=== PATIENT | male | born 1955 | race Two or more races ===

== ENCOUNTER 2025-02-21 23:45 | Inpatient (IN) | payer MEDICARE, OTHER ==
[~2025-02-21] VITALS: Ht 165.1 cm; Wt 87.7 kg
--- NOTE | 2025-02-22 00:21 | ED.PDOC ---
History of Present Illness HPI Comments 69-year-old male BIBA from [facility] with C/C of ALOC and weakness s/p fall with pain to right arm, leg, and foot. [facility] RN reported that patient reported her fell on his right side on Saturday and since then has become increasingly confused. Baseline is A/Ox4 and is currently A/Ox1. RN reported that stroke assessment was done at their facility and was negative but neuro consult is questionable for possible stroke. Neurology at facility is requesting patient be followed up with an MRI of his brain. Chief Complaint: ALOC Time Seen by MD: 00:09 Reviewed Notes: Medications, Allergies Allergies: Coded Allergies: NO KNOWN ALLERGIES (Unverified , 02/21/25) Information Source: Emergency Med Personnel Mode of Arrival: EMS Severity: Moderate Timing: Days Duration: Since onset Prehospital treatment: None Past Medical History PAST MEDICAL HISTORY: Pt Confused Surgical History: Pt Confused Family History Family History: Pt Confused Social History Smoker: Pt Confused Alcohol: Pt Confused Drugs: Pt Confused Lives In: Home Constitutional: reports: weakness; denies: chills, diaphoresis, fatigue, fever, malaise, sweats, others EENTM: denies: blurred vision, double vision, ear bleeding, ear discharge, ear drainage, ear pain, ear ringing, eye pain, eye redness, hearing loss, mouth pain, mouth swelling, nasal discharge, nose bleeding, nose congestion, nose pain, photophobia, tearing, throat pain, throat swelling, voice changes, others Respiratory: denies: cough, hemoptysis, orthopnea, SOB at rest, shortness of breath, SOB with excertion, stridor, wheezing, others Cardiovascular: denies: chest pain, dizzy spells, diaphoresis, Dyspnea on exertion, edema, irregular heart beat, left arm pain, lightheadedness, palpitations, PND, syncope, others Gastrointestinal: denies: abdomen distended, abdominal pain, blood streaked bowels, constipated, diarrhea, dysphagia, difficulty swallowing, hematemesis, melena, nausea, poor appetite, poor fluid intake, rectal bleeding, rectal pain, vomiting, others Genitourinary: denies: burning, dysuria, flank pain, frequency, hematuria, incontinence, penile discharge, penile sore, pain, testicle pain, testicle swelling, urgency, others Neurological: reports: right sided weakness; denies: dizziness, fainting, headache, left sided numbness, left sided weakness, numbness, paresthesia, pre- existing deficit, right sided numbness, seizure, speech problems, tingling, tremors, weakness, others Musculoskeletal: denies: back pain, gout, joint pain, joint swelling, muscle pain, muscle stiffness, neck pain, others Integumetry: denies: bruises, change in color, change in hair/nails, dryness, laceration, lesions, lumps, rash, wounds, others Allergic/Immunocompromised: denies: Difficulty Healing, Frequent Infections, Hives, Itching, others Hematologic/Lymphatic: denies: anemia, blood clots, easy bleeding, easy bruising, swollen glands, others Endocrine: denies: excessive hunger, excessive sweating, excessive thirst, excessive urination, flushing, intolerance to cold, intolerance to heat, unexplained weight gain, unexplained weight loss, others Psychiatric: denies: anxiety, bipolar disorder, depression, hopeless, panic disorder, schizophrenia, sleepless, suicidal, others Unable to Obtain due to: Altered Mental Status All Other Systems: Reviewed and Negative Physical Exam General Appearance: No Apparent Distress, Normal HEENT: Normal ENT Inspection, Pharynx Normal, TMs Normal Neck: Full Range of Motion, Non-Tender, Normal, Normal Inspection Respiratory: Chest Non-Tender, Lungs Clear, No Accessory Muscle Use, No Respiratory Distress, Normal Breath Sounds Cardiovascular: No Edema, No JVD, No Murmur, No Gallop, Normal Peripheral Pulses, Regular Rate/Rhythm Breast Exam: Deferred Gastrointestinal: No Organomegaly, Non Tender, No Pulsatile Mass, Normal Bowel Sounds, Soft Genitalia: Deferred Pelvic: Deferred Rectal: Deferred Extremities: No calf tenderness, Normal capillary refill, Normal inspection, Normal range of motion, Non-tender, No pedal edema Musculoskeletal : Apperance: Normal Neurologic: Alert, printed circuit board panels deburrer II-XII nml as Tested, No Motor Deficits, Normal Affect, No Sensory Deficits Cerebellar Function: Normal Reflexes: Normal Skin: Dry, Normal Color, Warm Lymphatic: No Adenopathy Was a procedure done? Was a procedure done?: No Differential Dx Considerations may include: CVA, ACS, viral syndrome, musculoskeletal pain X-Ray, Labs, Meds, VS Vital Signs Date Time Temp Pulse Resp B/P (MAP) Pulse Ox O2 Delivery O2 Flow Rate FiO2 02/21/25 23:47 97.9 74 18 180/86 (117) 97 97.9 Lab Test 02/22/25 00:40 02/22/25 00:21 Range/Units Urine Color Light-yellow Yellow Urine Clarity Clear Clear Urine pH 6.5 5.0-9.0 Urine Specific [place] > 1.050 H 1.001-1.035 Urine Protein Negative Negative Urine Ketones Negative Negative Urine Blood Negative Negative /uL Urine Nitrite Negative Negative Urine Bilirubin Negative Negative Urine Urobilinogen Normal Negative mg/dL Urine Leukocyte Esterase Negative Negative /uL Urine RBC 1 0 - 3 /hpf Urine Microscopic WBC < 1 0-3 /HPF Urine Squamous Epithelial Cells Few <5 /hpf Urine Bacteria None seen None Seen /hpf Urine Glucose Normal Normal mg/dL White Blood Count 8.1 4.4-10.8 10^3/uL Red Blood Count 4.63 4.5-5.90 10^6/uL Hemoglobin 15.1 13.5-17.5 g/dL Hematocrit 44.0 41.0-53.0 % Mean Corpuscular Volume 95.1 80.0-100.0 fL Mean Corpuscular Hemoglobin 32.7 H 28.0-32.0 pg Mean Corpuscular Hemoglobin Concent 34.4 32.0-36.0 g/dL Red Cell Distribution Width 13.6 11.8-14.3 % Platelet Count 201 140-450 10^3/uL Mean Platelet Volume 7.7 6.9-10.8 fL Neutrophils (%) (Auto) 69.7 37.0-80.0 % Lymphocytes (%) (Auto) 19.9 10.0-50.0 % Monocytes (%) (Auto) 8.6 0.0-12.0 % Eosinophils (%) (Auto) 1.0 0.0-7.0 % Basophils (%) (Auto) 0.8 0.0-2.0 % Neutrophils # (Auto) 5.6 1.6-8.6 10 ^3/uL Lymphocytes # (Auto) 1.6 0.4-5.4 10 ^3/uL Monocytes # (Auto) 0.7 0-1.3 10 ^3/uL Eosinophils # (Auto) 0.1 0-0.8 10 ^3/uL Basophils # (Auto) 0.1 0-0.2 10 ^3/uL Nucleated Red Blood Cells 0.1 % Sodium Level 139 136-145 mmol/L Potassium Level 4.1 3.5-5.1 mmol/L Chloride Level 108 H 98-107 mmol/L Carbon Dioxide Level 23 20-31 mmol/L Anion Gap 8 5-15 Blood Urea Nitrogen 12 9-23 mg/dL Creatinine 0.83 0.700-1.30 mg/dL Glomerular Filtration Rate Calc 96 >90 mL/min BUN/Creatinine Ratio 14.5 10.0-20.0 Serum Glucose 96 74-106 mg/dL Calcium Level 11.2 H 8.7-10.4 mg/dL Troponin I High Sensitivity 8 </=54 ng/L Time of 1ST Reevaluation: 00:39 Reevaluation 1ST: Unchanged Patient Education/Counseling: Diagnosis, Treatment Family Education/Counseling: No Family Present Departure 1 Departure Time of Disposition: 01:15 (Patient was transferred from outside hospital. That hospital he had CT scan x-rays performed. They are all benign. Patient was evaluated by neurology at outside hospital recommended transfer for MRI and further neurologic intervention.) Impression: Primary Impression: Metabolic encephalopathy Additional Impression: Right sided weakness Disposition: ADMITTED INPATIENT Admit to: Med Surg Condition: Serious Critical Care Note Critical Care Time?: No Stability Stability form required: No I personally scribed for MIRIAM CEDILLO MD ([email or web address]) on 02/22/25 at 00:21. Electronically submitted by Navin Prater ([email or web address]). MIRIAM CEDILLO MD Feb 22, 2025 00:21
[2025-02-22 00:39] LABS: Basophils # (auto) 0.1 10 ^3/uL (0-0.2); Basophils % (auto) 0.8 % (0.0-2.0); Eosinophils # (auto) 0.1 10 ^3/uL (0-0.8); Hemoglobin 15.1 g/dL (13.5-17.5); Lymphocytes # (auto) 1.6 10 ^3/uL (0.4-5.4); Lymphocytes % (auto) 19.9 % (10.0-50.0); Mean Corpuscular Hemoglobin 32.7 pg (28.0-32.0); Mean Corpuscular Hgb Conc. 34.4 g/dL (32.0-36.0); Mean Corpuscular Volume 95.1 fL (80.0-100.0); Monocytes # (auto) 0.7 10 ^3/uL (0-1.3); Monocytes % (auto) 8.6 % (0.0-12.0); Neutrophils # (auto) 5.6 10 ^3/uL (1.6-8.6); Neutrophils % (auto) 69.7 % (37.0-80.0); Nucleated Red Blood Cells % 0.1 %; Platelet Count (auto) 201 10^3/uL (140-450); Red Blood Cells 4.63 10^6/uL (4.5-5.90); Red Cell Distribution Width 13.6 % (11.8-14.3); White Blood Cell 8.1 10^3/uL (4.4-10.8)
[2025-02-22 00:48] LABS: Potassium 4.1 mmol/L (3.5-5.1); Sodium 139 mmol/L (136-145)
[2025-02-22 00:49] LABS: Anion Gap 8 (5-15); Carbon Dioxide 23 mmol/L (20-31)
[2025-02-22 00:52] LABS: Calcium 11.2 mg/dL (8.7-10.4); Chloride 108 mmol/L (98-107)
[2025-02-22 00:54] LABS: BUN/Creatinine Ratio 14.5 (10.0-20.0); Blood Urea Nitrogen 12 mg/dL (9-23); Glucose 96 mg/dL (74-106)
[2025-02-22 00:55] VITALS: PULSE 62; RESP 16; O2SAT 92
[2025-02-22 01:01] LABS: Urine Bacteria None Seen /hpf (None Seen)
[2025-02-22 01:11] LABS: Urine Blood Negative /uL (Negative); Urine Clarity Clear (Clear); Urine Color Light-Yellow (Yellow); Urine Protein, UAD Negative (Negative); Urine Squamous Epithelial Cell FEW /hpf (<5); Urine Urobilinogen Normal (Negative); Urine WBC < 1 /HPF (0-3); Urine pH 6.5 (5.0-9.0)
[2025-02-22 01:12] LABS: Urine Specific Gravity > 1.050 (1.001-1.035)
--- NOTE | 2025-02-22 03:38 | DVHHPRES ---
History of Present Illness Resident Creating Document: MELCHOR DIAZ RESIDENT History of Present Illness Mr. Collazo is a 69-year-old male patient with past medical history of hypertension who was transferred from [facility] for the evaluation of right-sided weakness. Patient presented to [place] with a chief complaint of a fall, per review of record, patient has been having multiple falls in the recent past, last 1 was on 02/18 and 02/20, 1 of which fall episodes patient lost consciousness and he was knocked out. Patient was coming out to the car when his legs collapsed and he fell, this episode was witnessed by neighbors and patient's . Patient is A&O3 at the time of history taking but per chart review he was confused at [facility]. Patient reported weakness of the right upper and lower extremity which has persisted till now. He also reports dysphagia, blurry vision, headache, but denies any sensory loss. He usually ambulates with a wheelchair. Patient is a chronic smoker redness has been smoking almost a pack a day. [facility], head CT was unremarkable. Neurologist recommended transfer for MRI brain given the probability of posterior circulation stroke. CT angio head and neck was also completed [place] which was unremarkable. Knee x-ray was completed which showed a small effusion. EKG was completed which showed PACs. Past medical history: Hypertension Social history: Smokes a pack a day for the past 50 years, drinks occasionally, denies illicit drug use Patient seen and examined at the bedside. Has right upper and right lower extremity motor weakness. No sensory deficits. NPO, speech swallow ordered Smoke: 1 pack per day ALCOHOL: occassional Drugs: None Lives: with Family Review of Systems Constitutional: Yes: Weakness, Malaise Neurological: Weakness, Confusion Allergies: Coded Allergies: NO KNOWN ALLERGIES (Unverified , 02/21/25) Exam Vital Signs Vital Signs Date Time Temp Pulse Resp B/P (MAP) Pulse Ox O2 Delivery O2 Flow Rate FiO2 02/22/25 01:00 98.1 60 16 160/99 (119) 92 98.1 02/22/25 00:55 Room Air* 0 21 Exam Patient lying in bed, in no acute distress General: Well-built, afebrile, palor, mucosae are moist Cardiovascular: Regular S1 and S2. No murmurs, gallops or rubs. No JVD elevation. No pedal edema Respiratory: Normal B/L air entry on room air. Clear lung sounds on auscultation Abdomen: Soft, nontender, nondistended, normoactive bowel sounds, no rebound tenderness, no organomegaly, no masses Genitourinary: Deferred MSK/skin: Mobilizes 4 limbs. Skin is dry and warm Neurological: Right upper and right lower extremity motor weakness against gravity, no sensory deficit.. No facial asymmetry noted. Psych/Mental Status: A/Ox3 Labs/Xrays Labs Test 02/22/25 00:40 02/22/25 00:21 Range/Units Urine Color Light-yellow Yellow Urine Clarity Clear Clear Urine pH 6.5 5.0-9.0 Urine Specific [place] > 1.050 H 1.001-1.035 Urine Protein Negative Negative Urine Ketones Negative Negative Urine Blood Negative Negative /uL Urine Nitrite Negative Negative Urine Bilirubin Negative Negative Urine Urobilinogen Normal Negative mg/dL Urine Leukocyte Esterase Negative Negative /uL Urine RBC 1 0 - 3 /hpf Urine Microscopic WBC < 1 0-3 /HPF Urine Squamous Epithelial Cells Few <5 /hpf Urine Bacteria None seen None Seen /hpf Urine Glucose Normal Normal mg/dL White Blood Count 8.1 4.4-10.8 10^3/uL Red Blood Count 4.63 4.5-5.90 10^6/uL Hemoglobin 15.1 13.5-17.5 g/dL Hematocrit 44.0 41.0-53.0 % Mean Corpuscular Volume 95.1 80.0-100.0 fL Mean Corpuscular Hemoglobin 32.7 H 28.0-32.0 pg Mean Corpuscular Hemoglobin Concent 34.4 32.0-36.0 g/dL Red Cell Distribution Width 13.6 11.8-14.3 % Platelet Count 201 140-450 10^3/uL Mean Platelet Volume 7.7 6.9-10.8 fL Neutrophils (%) (Auto) 69.7 37.0-80.0 % Lymphocytes (%) (Auto) 19.9 10.0-50.0 % Monocytes (%) (Auto) 8.6 0.0-12.0 % Eosinophils (%) (Auto) 1.0 0.0-7.0 % Basophils (%) (Auto) 0.8 0.0-2.0 % Neutrophils # (Auto) 5.6 1.6-8.6 10 ^3/uL Lymphocytes # (Auto) 1.6 0.4-5.4 10 ^3/uL Monocytes # (Auto) 0.7 0-1.3 10 ^3/uL Eosinophils # (Auto) 0.1 0-0.8 10 ^3/uL Basophils # (Auto) 0.1 0-0.2 10 ^3/uL Nucleated Red Blood Cells 0.1 % Sodium Level 139 136-145 mmol/L Potassium Level 4.1 3.5-5.1 mmol/L Chloride Level 108 H 98-107 mmol/L Carbon Dioxide Level 23 20-31 mmol/L Anion Gap 8 5-15 Blood Urea Nitrogen 12 9-23 mg/dL Creatinine 0.83 0.700-1.30 mg/dL Glomerular Filtration Rate Calc 96 >90 mL/min BUN/Creatinine Ratio 14.5 10.0-20.0 Serum Glucose 96 74-106 mg/dL Calcium Level 11.2 H 8.7-10.4 mg/dL Troponin I High Sensitivity 8 </=54 ng/L Assessment/Plan Assessment/Plan Syncopal episode rule out cardiogenic cause Altered level of consciousness rule out metabolic causes Right upper and lower extremity weakness Rule out acute stroke Hypertensive encephalopathy Chronic rotator cuff tear - outpatient elective surgery Chronic alcohol dependence Macrocytosis secondary to alcohol use Mild hypercalcemia Plan: Neurologist Dr. Morales at [facility] recommended transferring for MRI brain Follow up with echocardiogram, carotid duplex, MRI brain, panel, A1c Aspirin 81 mg daily and atorvastatin 40 mg daily Chest x-ray shows bilateral pulmonary vascular congestion when probable right l ower infiltrate versus effusion. Follow up with BNP levels, trop WNL. Physical therapist consulted Follow up with with telemetry and echocardiogram Lovenox 40 mg sc daily NPO given dysphagia, speech therapist requested Plan discussed with patient in which all questions have been answered Goals of care discussed for more than 38 minutes, full code status Case discussed with Dr. Mcguire Plan discussed with: Patient Date of Service: Feb 22, 2025 Billing Provider: LISA MCGUIRE MD Common Visit Codes: [id number] INP/OBS CARE (HIGH) Secondary Visit Codes: [id number] CARE PLAN 30 MINUTES MELCHOR DIAZ RESIDENT Feb 22, 2025 03:38 LISA MCGUIRE MD Feb 22, 2025 11:03
[2025-02-22] MEDS ORDERED: ACETAMINOPHEN 500 MG TAB or CAP PO PRN (03:45)
[2025-02-22] MEDS ORDERED: amLODIPine BESYLATE 5 MG TAB PO ONE (04:00)
[2025-02-22 04:33] LABS: Partial Thromboplastin Time 31.7 SEC (24.5-34.5); Prothrombin Time 10.6 sec (9.3-11.8)
--- NOTE | 2025-02-22 04:42 | DVH ---
CHEST RADIOGRAPH Indication: falls Technique: Single frontal view of the chest was obtained Comparison: None FINDINGS: Lines and Tubes: None Lungs: Pulmonary interstitial prominence. Pleura: No effusion. No pneumothorax. Cardiomediastinal contours: Cardiomegaly. Bones: No acute osseous abnormality. IMPRESSION: 1. Pulmonary vascular congestion. 2. Cardiomegaly.
[2025-02-22 04:44] LABS: Albumin 4.3 g/dL (3.2-4.8); Bilirubin, Direct 0.2 mg/dL (<0.3); Bilirubin, Total 0.9 mg/dL (0.2-1.0); Total Protein 6.8 g/dL (5.7-8.2)
[2025-02-22] MEDS: HYDROcodone-ACET 5/325MG TAB PO PRN (07:57)
[2025-02-22] MEDS ORDERED: amLODIPine BESYLATE 5 MG TAB PO SCH (10:00)
--- NOTE | 2025-02-22 10:02 | DVH ---
Carotid Duplex Date: 02/22/2025 08:04 AM Clinical History: r sided weak Comparison: None Technique: Duplex Doppler evaluation of the extracranial carotid and vertebral arteries including col or Doppler and spectral/pulsed waveform analysis was performed. Findings: Velocities and ratios within normal IMPRESSION: No hemodynamically significant stenosis noted in the right carotid system. No hemodynamically significant stenosis noted in the left carotid system. Reference: Radiology 2003; 229:[id number]
[2025-02-22] MEDS: ASPirin-EC 81 mg tab PO SCH (10:56)
[2025-02-22] MEDS: amLODIPine BESYLATE 5 MG TAB PO SCH (10:56)
[2025-02-22] MEDS: ENOXAPARIN SOD 40 MG/0.4 ML SYRINGE SC SCH (10:57)
[2025-02-22] MEDS: LISINOPRIL 5 MG TAB PO ONE (10:58)
--- NOTE | 2025-02-22 12:15 | DVH ---
X-ray right shoulder Technique: AP internal and external rotation views REASON FOR EXAM: pain after fall FINDINGS: No fractures or dislocations. High-riding humeral head abuts the undersurface of the distal acromion process with remodelling IMPRESSION: 1. No acute bony pathology. Probable rotator cuff tear
--- NOTE | 2025-02-22 13:26 | DVH ---
X-ray right hip Technique: AP and frog-leg views REASON FOR EXAM: Hip Fracture FINDINGS: No fractures or dislocations. No erosions or periosteal reaction. Articular surfaces are sm ooth. IMPRESSION: 1. No acute bony pathology
[2025-02-22 13:54] LABS: Amphetamine Screen, Urine Neg (NEGATIVE); Barbiturate Scree,Urine Neg (NEGATIVE); Benzodiazephine Screen, Urine Neg (NEGATIVE); Cocaine Screen, Urine Neg (NEGATIVE); Opiate Scree,Urine Neg (NEGATIVE); Phencyclidine Screen, Urine Neg (NEGATIVE)
[2025-02-22 13:55] LABS: Cannabinoid Screen, Urine Neg (NEGATIVE)
[2025-02-22 16:42] VITALS: BP 123/84; PULSE 82; RESP 20; TEMP 98.5; O2SAT 94
--- NOTE | 2025-02-22 16:45 | DVHPNRES ---
Progress Note Date Seen: Feb 22, 2025 Resident Creating Document: BARRETT WOODS TA Has the PT tested + for MRSA If YES, has PT been informed?: No Medical Necessity Reason Pt with a Central, PICC or Fol: No Subjective Review of Systems This is a 69-year-old male with past medical history of hypertension transferred from [facility] for evaluation of right side weakness. Patient is altered, history taken from at bedside. Per patient's , he had a mechanical fall 4 days back, post fall he was altered, was refusing hospital visit and yesterday he was taken to [facility]. Per [facility] records head CT scan and head/neck CT angio were not significant. During my assessment patient was oriented x1 and was complaining of right upper extremity pain. Per patient's , he has history of multiple fall, did not have any active complains but was not able to use his right upper and lower extremity since recent fall, and was ataxic during mobility. She denies fever, nausea, vomiting, chest pain, shortness of breath, abdominal pain, diarrhea, constipation. PMHx: Hypertension PSHx: No significant Family history: Not contributed Social history:Current smoker with 50 pack year history, drank occasionally, denies any other drug use Home medication: Amlodipine Allergic history: No known allergy Patient seen and examined at the bedside. Patient is altered. review of systems could not obtain. Patient reports: No new complaints Objective vital signs Vital Sign Date Time Temp Pulse Resp B/P (MAP) Pulse Ox O2 Delivery O2 Flow Rate FiO2 02/22/25 15:11 89 13 136/76 (96) 92 02/22/25 07:12 Room Air* 0 21 02/22/25 07:12 98.1 98.1 medications Current Medications Medications Dose Ordered Sig/Luke Route Start Time Stop Time Status Last Admin Dose Admin Aspirin 81 mg DAILY PO 02/22/25 10:00 02/22/25 10:56 81 MG Atorvastatin Calcium 40 mg HS PO 02/22/25 22:00 Acetaminophen 500 mg Q4HPRN PRN PO 02/22/25 03:45 Acetaminophen/ Hydrocodone Bitart 1 tab Q4HPRN PRN PO 02/22/25 03:45 02/22/25 07:57 1 TAB Enoxaparin Sodium 40 mg DAILY SC 02/22/25 10:00 4/21/25 10:57 40 MG Amlodipine Besylate 10 mg DAILY PO 02/22/25 10:00 02/22/25 10:56 10 MG Lisinopril 10 mg DAILY PO 02/23/25 10:00 Examination General Appearance: Alert, Oriented x1 HEENT: Atraumatic, PERRLA, EOMI, Mucous membrane moist/pink Respiratory: Clear to auscultation, Normal air movement Cardiovascular: Regular rate, Normal S1, Normal S2, No murmurs, no chest wall tenderness Abdominal: Normal bowel sounds, Soft, No tenderness, No hepatospenomegaly, No masses Extremities: No clubbing, No cyanosis, No edema, Normal pulses, No tenderness/swelling Skin: No rashes, No breakdown, No significant lesion Neuro: Right upper extremity power 2/5, right lower extremity power 1/5, grossly intact cranial nerves laboratory and microbiology Laboratory Tests 02/22/25 00:21 Test 02/22/25 00:21 Range/Units Serum Glucose 96 74-106 mg/dL Labs and/or images reviewed: Labs reviewed by me, Image(s) reviewed by me Problem List/Assessment/Plan Problem List/Assessment/Plan Acute metabolic encephalopathy, possibly due to traumatic brain injury Traumatic brain injury, concussion/contusion Possible ischemic stroke ? Hypertensive emergency leading to stroke/encephalopathy History of hypertension Per [place] record, head CT scan and head/neck CT angio were nonsignificant Brain MRI Consulted Neurology Aspirin Atorvastatin Amlodipine and lisinopril Labetalol p.r.n. Current smoker Consulted for more than 17 minutes for smoking cessation Nicotine patch Hypercalcemia Ca trend DIET: Cardiac diet DVT PROPHYLAXIS: Lovenox GI PROPHYLAXIS:: Protonix CODE STATUS: Goal of care discussed for more than 18 minutes, full code DISPOSITION: Telemetry Patient's status and plan discussed with the patient. Case discussed with Dr. Padgett. Plan discussed with: Patient, Other (RN) My Orders My Orders Orders - BARRETT WOODS RESDIJUNIOR Procedure Category Date Status Time Amlodipine Tablet PHA 02/22/25 In Process (Norvasc Tablet) 10:00 Cardiac DIET 02/22/25 Transmitted Diet-2gna,Lofat,Lochol Lunch Pt Request For Service PT 02/22/25 Logged 10:15 Lisinopril Tablet PHA 02/23/25 In Process (Zestril Tablet) 10:00 R Shoulder 2+ View XY 02/22/25 Resulted Xray 10:43 R Hip Complete Xray XY 02/22/25 Resulted 12:17 * Neurology Consult CONS 02/22/25 Transmitted 12:17 Sitter 1:1 ORDERS 02/22/25 Transmitted 12:26 Date of Service: Feb 22, 2025 Billing Provider: ISABEL HATCH MD Common Visit Codes: [id number] INP/OBS CARE(HIGH) BARRETT WOODS RESDIENT Feb 22, 2025 16:44 ISABEL HATCH MD Feb 24, 2025 00:32
[2025-02-22 16:51] VITALS: BP 123/84; RESP 18; TEMP 98
[2025-02-22] MEDS: NICOTINE 21MG/24 HR TOPICAL PATCH TD ONE (17:15)
--- NOTE | 2025-02-22 18:23 | DVH ---
EXAM: MRI BRAIN HEAD WO CONTRAST; DATE: 02/22/2025 05:03 PM HISTORY: aloc, stroke COMPARISON: None TECHNIQUE: MRI was performed utilizing multiple appropriate imaging planes and pulse sequences. FINDINGS: SUPRATENTORIAL REGION: Restricted diffusion noted in the inferior right occipital lobe extending to the posterior medial aspect of the temporal lobe. Restricted diffusion also noted in the left thalamu s No intracranial hemorrhage noted. Scattered ill-defined FLAIR hyperintensities are noted within the bilateral periventricular region, belcher radiata and subcortical white matter. POSTERIOR FOSSA: Unremarkable. BRAINSTEM: Unremarkable. SELLAR/SUPRASELLAR REGION: Unremarkable. VENTRICLES, CISTERNS, SULCI: Age-appropriate. ORBITS: Unremarkable. PARANASAL SINUSES: Mild diffuse paranasal sinus disease. Trace fluid noted in the sphenoid and ethm oid sinuses. MASTOID AIR CELLS: Unremarkable. VASCULATURE: Unremarkable. BONES/ SOFT TISSUES: Unremarkable. OTHER: None. IMPRESSION: 1. Acute ischemia involving the inferior left occipital lobe, posterior medial left temporal lobe the left thalamus. No intracranial hemorrhage.Moderate global 2. Cortical atrophy and chronic microvascular ischemic changes. 3. 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. Critical Result: Stroke Alert Findings discussed with DEREK Singh at 02/22/2025 06:11 PM, and acknowledged receipt and understanding of the findings. ..
--- NOTE | 2025-02-22 18:28 | DVHSR ---
APPROVED REPORT EXAM: Two-dimensional and M-mode echocardiogram with Doppler and color Doppler. Blood Pressure: 136/76 mmHg INDICATION Syncope RISK FACTORS Height: 5'5", Weight: 160 DIMENSIONS LVDd3.5 (3.8-5.7cm)LA (2D)3.5 (1.9-4.0cm)Aortic Root3.8 (2.0-3.7cm) LVDs2.6 (2.5-4.0cm)LA (MM) (1.9-4.0cm)Aortic Cusp Exc1.8 (1.5-2.0cm) EF (%) 50.0 (55-70%)Rt. Atrium3.4 (1.9-4.0cm)Asc. Aorta cm IVSd1.5 (0.7-1.1cm)RV (D)3.9 (1.8-2.4cm) PWd1.4 (0.7-1.1cm) Mitral Valve MitralMitral Stenosis E wave0.61m/sMV Mean GR.mmHg A wave0.84m/sMV Peak GR.mmHg E/A ratio0.72D MVAcm2 DECEL [id number] 1/2 Timems Aortic Valve Aortic ValveAortic Stenosis V11.12m/Liseth Mean GR.3mmHg V21.25m/Liseth Peak GR.6mmHg LVOT Diameter2.1 (1.8-2.4cm)Doppler AVA3.10cm2 Pulmonic Valve V21.02m/s LEFT VENTRICLE There is mildconcentric left ventricular hypertrophy. LVEF 55-60% is normal RIGHT VENTRICLE RV function is normal Other Information Technically limited study due to body habitus. Conclusion LVEF 55-60% is normal There is mild concentric left ventricular hypertrophy.
[2025-02-22 20:00] VITALS: PULSE 56; RESP 16
[2025-02-22 21:00] VITALS: BP 131/88; PULSE 87; RESP 19; TEMP 98; O2SAT 92
[2025-02-22] MEDS: ATORVASTATIN 20 MG TAB PO SCH (21:02)
--- NOTE | 2025-02-22 23:47 | DVHINCON2 ---
Date of service: Feb 22, [address] Snowden Reason for Consultation ? CVA History of Present Illness Mr. Collazo is a 69 years old gentleman with a history of hypertension, obesity, tobacco smoking, the patient was was transferred from the [facility] with a chief company of ALOC, weakness, status post fall. Apparently, the patient was had fall onto his right side, and since then the pa tient was confused, was only oriented x1 compared to baseline fully oriented At that time, the patient was is arousable, but may only oriented times 1-2, but with reasonable social skills. Per my observation, the patient was may have right-sided visual field cut, and mild right-sided weakness Urinalysis, 02/22/2025: WBC: 1, urine leukocyte esterase: Negative UDS, 02/22/2025: Negative CBC, 02/22/2025: Unremarkable CMP, 02/22/2025: Unremarkable HGB A1c, 02/22/25: 5 Vitamin B12, 02/22/25: 239 TSH, 02/22/2025: 1.06 Carotid Doppler, 02/22/2025: No hemodynamically significant stenosis noted in the right carotid system. No hemodynamically significant stenosis noted in the left carotid system. MRI head, 02/22/2025: 1. Acute ischemia involving the inferior left occipital lobe, posterior medial left temporal lobe the left thalamus. No intracranial hemorrhage.Moderate global 2. Cortical atrophy and chronic microvascular ischemic changes. 3. 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 Past Medical History Hypertension, obesity Past Surgical History Unobtainable Family History Unobtainable Social History He smokes, but no history of drug or alcohol abuse Allergies: Coded Allergies: NO KNOWN ALLERGIES (Unverified , 02/21/25) Current Medications Current Medications Medications (Trade) Dose Ordered Sig/Luke Route PRN Reason Start Time Stop Time Status Last Admin Aspirin (Ecotrin Enteric Coated Tablet) 81 mg DAILY PO 02/22/25 10:00 02/22/25 10:56 Atorvastatin Calcium (Lipitor) 40 mg HS PO 02/22/25 22:00 02/22/25 21:02 Acetaminophen (Tylenol Tablet Or Capsule) 500 mg Q4HPRN PRN PO MILD PAIN (1-3 PAIN SCALE) 02/22/25 03:45 Acetaminophen/ Hydrocodone Bitart ([place] 5/325MG Tab) 1 tab Q4HPRN PRN PO SEVERE PAIN (7-10 PAIN SCALE) 02/22/25 03:45 02/22/25 07:57 Amlodipine Besylate (Norvasc Tablet) 10 mg DAILY PO 02/22/25 10:00 02/22/25 03:52 DC Enoxaparin Sodium (Lovenox) 40 mg DAILY SC 02/22/25 10:00 02/22/25 10:57 Amlodipine Besylate (Norvasc Tablet) 10 mg DAILY PO 02/22/25 10:00 02/22/25 10:56 Lisinopril (Zestril Tablet) 10 mg DAILY PO 02/23/25 10:00 Nicotine (Nicoderm 21MG/ 24HR) 1 patch DAILY TD 02/23/25 10:00 Review of Systems Unobtainable Vital Signs Vital Signs Date Time Temp Pulse Resp B/P (MAP) Pulse Ox O2 Delivery O2 Flow Rate FiO2 02/22/25 21:00 98.0 87 19 131/88 (102) 92 98.0 02/22/25 20:00 Room Air* 0 21 Physical Exam GENERAL EXAM: General: the patient is well developed and nourished. No acute distress. HEENT: Normocephalic, neck is supple, no carotid bruits. No mass RESPIRATORY: Normal respiratory effort with symmetrical lung expansion. Lungs clear to auscultation. CARDIOVASCULAR: Regular rate and rhythm with no murmurs. S1, S2. ABDOMEN: Soft, nontender, normal bowel sound NEUROLOGICAL: MENTAL STATUS: Awake and alert. Oriented to person, possibly to place, poor hist orian SPEECH, LANGUAGE, HIGHER CORTICAL FUNCTION: no aphasia or dysathria. CRANIAL NERVES: #2: Right visual field cut #3,4,6: Pupils are equal, round and reactive. EOMs full and conjugate. #5: Facial sensation intact in all three divisions bilaterally. Mandibular strength intact. #7: Facial muscles symmetrical and strength intact. #8: Hearing grossly normal to voice. #9,10: Uvula and soft palate rise in the midline. Swallow and voice are normal. #11: Trapezius and sternomastoid strength intact bilaterally. #12: Tongue midline. No fasciculations or atrophy. SENSATION: Sensation to touch and pinprick is normal. MOTOR: Normal tone in the upper and lower extremity. Normal muscle bulk. No fasciculations. No abnormal movements or posturing. Muscle strength of the major groups in the left extremities is 5/5. Muscle strength of the major groups in the right r extremities is 4/5. REFLEXES: Deep tendon reflexes are symmetrical. No pathological reflexes. CEREBELLAR/COORDINATION: Deferred GAIT/STATION: deferred Labs/Diagnostic Data Labs Test 02/22/25 13:10 02/22/25 04:03 02/22/25 00:40 02/22/25 00:21 Range/Units Ammonia < 10 L 11-32 umol/L Prothrombin Time 10.6 9.3-11.8 sec Prothrombin Time INR 1.00 0.9-1.15 Activated Partial Thromboplast Time 31.7 24.5-34.5 SEC Hemoglobin A1c 5.0 <5.7 % A1C Magnesium Level 2.2 1.6-2.6 mg/dL Total Bilirubin 0.9 0.2-1.0 mg/dL Direct Bilirubin 0.2 <0.3 mg/dL Aspartate Amino Transferase (AST) 17 13-40 U/L Alanine Aminotransferase (ALT) 18 7-40 U/L Alkaline Phosphatase 95 46-116 U/L Total Protein 6.8 5.7-8.2 g/dL Albumin 4.3 3.2-4.8 g/dL Vitamin B12 Level 239 211-911 pg/mL Vitamin D 25-Hydroxy 35.8 30.0-100 ng/mL Thyroid Stimulating Hormone (TSH) 1.06 0.55-4.78 uIU/mL Parathyroid Hormone (Intact) 103.8 H 18.4-80.1 pg/mL HIV (1&2) Antibody Negative Negative Urine Color Light-yellow Yellow Urine Clarity Clear Clear Urine pH 6.5 5.0-9.0 Urine Specific [place] > 1.050 H 1.001-1.035 Urine Protein Negative Negative Urine Ketones Negative Negative Urine Blood Negative Negative /uL Urine Nitrite Negative Negative Urine Bilirubin Negative Negative Urine Urobilinogen Normal Negative mg/dL Urine Leukocyte Esterase Negative Negative /uL Urine RBC 1 0 - 3 /hpf Urine Microscopic WBC < 1 0-3 /HPF Urine Squamous Epithelial Cells Few <5 /hpf Urine Bacteria None seen None Seen /hpf Urine Glucose Normal Normal mg/dL Urine Opiates Screen Neg NEGATIVE Urine Fentanyl Screen Neg NEGATIVE Urine Barbiturates Screen Neg NEGATIVE Urine Phencyclidine Screen Neg NEGATIVE Urine Amphetamines Screen Neg NEGATIVE Urine Benzodiazepines Screen Neg NEGATIVE Urine Cocaine Screen Neg NEGATIVE Urine Cannabinoids Screen Neg NEGATIVE White Blood Count 8.1 4.4-10.8 10^3/uL Red Blood Count 4.63 4.5-5.90 10^6/uL Hemoglobin 15.1 13.5-17.5 g/dL Hematocrit 44.0 41.0-53.0 % Mean Corpuscular Volume 95.1 80.0-100.0 fL Mean Corpuscular Hemoglobin 32.7 H 28.0-32.0 pg Mean Corpuscular Hemoglobin Concent 34.4 32.0-36.0 g/dL Red Cell Distribution Width 13.6 11.8-14.3 % Platelet Count 201 140-450 10^3/uL Mean Platelet Volume 7.7 6.9-10.8 fL Neutrophils (%) (Auto) 69.7 37.0-80.0 % Lymphocytes (%) (Auto) 19.9 10.0-50.0 % Monocytes (%) (Auto) 8.6 0.0-12.0 % Eosinophils (%) (Auto) 1.0 0.0-7.0 % Basophils (%) (Auto) 0.8 0.0-2.0 % Neutrophils # (Auto) 5.6 1.6-8.6 10 ^3/uL Lymphocytes # (Auto) 1.6 0.4-5.4 10 ^3/uL Monocytes # (Auto) 0.7 0-1.3 10 ^3/uL Eosinophils # (Auto) 0.1 0-0.8 10 ^3/uL Basophils # (Auto) 0.1 0-0.2 10 ^3/uL Nucleated Red Blood Cells 0.1 % Sodium Level 139 136-145 mmol/L Potassium Level 4.1 3.5-5.1 mmol/L Chloride Level 108 H 98-107 mmol/L Carbon Dioxide Level 23 20-31 mmol/L Anion Gap 8 5-15 Blood Urea Nitrogen 12 9-23 mg/dL Creatinine 0.83 0.700-1.30 mg/dL Glomerular Filtration Rate Calc 96 >90 mL/min BUN/Creatinine Ratio 14.5 10.0-20.0 Serum Glucose 96 74-106 mg/dL Calcium Level 11.2 H 8.7-10.4 mg/dL Troponin I High Sensitivity 8 </=54 ng/L B-Type Natriuretic Peptide 24.73 0-100 pg/mL Assessment Acute stroke with resultant right hemiparesis, right homonymous hemianopsia Fall secondary to right hemiparesis Tobacco smoking Low vitB12 Plan/Recommendation Monitoring Supportive treatment Telemetry Echocardiogram Aspirin 81 mg daily Plavix 75 mg daily for 21 days Lipitor 40 mg daily Lovenox 40 mg subQ daily Up to chair Physical therapy Will discussed with him Re: driving It was quit smoking More recommendation per clinical course Prognosis: Poor This medical document was created using an electronic medical record system with [employer] dictation system. Although this document has been carefully reviewed, there may still be some phonetic and typographical errors. These areas are purely typographical due to imperfections of the software programs, and do not reflect any compromise in the patient's medical care. Plan discussed with: Other MARK BOOKER MD Feb 22, 2025 23:47
[2025-02-23] VITALS (7 sets, daily range): BP systolic 119–148; BP diastolic 73–92; PULSE 58–87; RESP 16–19; TEMP 97.7–98.5; O2SAT 96–98
[2025-02-23 07:31] LABS: Basophils # (auto) 0 10 ^3/uL (0-0.2); Basophils % (auto) 0.8 % (0.0-2.0); Eosinophils # (auto) 0.2 10 ^3/uL (0-0.8); Eosinophils % (auto) 3.6 % (0.0-7.0); Hematocrit 45.8 % (41.0-53.0); Lymphocytes # (auto) 1.3 10 ^3/uL (0.4-5.4); Mean Corpuscular Hemoglobin 33.3 pg (28.0-32.0); Mean Corpuscular Hgb Conc. 35.1 g/dL (32.0-36.0); Monocytes # (auto) 0.5 10 ^3/uL (0-1.3); Neutrophils # (auto) 3.7 10 ^3/uL (1.6-8.6); Neutrophils % (auto) 63.6 % (37.0-80.0); Nucleated Red Blood Cells % 0.3 %; Platelet Count (auto) 207 10^3/uL (140-450); Red Blood Cells 4.82 10^6/uL (4.5-5.90); Red Cell Distribution Width 13.7 % (11.8-14.3); White Blood Cell 5.8 10^3/uL (4.4-10.8)
[2025-02-23 07:36] LABS: Alanine Aminotransferase 24 U/L (7-40); Albumin 4.2 g/dL (3.2-4.8); Alkaline Phosphatase 94 U/L (46-116); Anion Gap 7 (5-15); Aspartate Aminotransferase 30 U/L (13-40); Glucose 92 mg/dL (74-106); Potassium 4.4 mmol/L (3.5-5.1); Triglycerides 109 mg/dL (< 150)
[2025-02-23 07:37] LABS: Bilirubin, Total 0.9 mg/dL (0.2-1.0); HDL Cholesterol 59 mg/dL (40-59)
[2025-02-23 07:39] LABS: Blood Urea Nitrogen 7 mg/dL (9-23); Calcium 11.2 mg/dL (8.7-10.4); Carbon Dioxide 19 mmol/L (20-31); Chloride 108 mmol/L (98-107); Cholesterol 218 mg/dL (< 200); LDL Cholesterol 142 mg/dL (< 100); Sodium 134 mmol/L (136-145)
[2025-02-23] MEDS: CLOPIDOGREL BISULFATE 75 MG TAB PO SCH (09:49)
[2025-02-23] MEDS: LISINOPRIL 5 MG TAB PO SCH (09:50)
[2025-02-23] MEDS: NICOTINE 21MG/24 HR TOPICAL PATCH TD SCH (09:52)
--- NOTE | 2025-02-23 12:11 | ECG ---
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
[2025-02-23] MEDS: ATORVASTATIN 20 MG TAB PO SCH (14:35)
--- NOTE | 2025-02-23 18:57 | DVHPNRES ---
Progress Note Date Seen: Feb 23, 2025 Resident Creating Document: BARRETT WOODS RESDIENT Has the PT tested + for MRSA If YES, has PT been informed?: No Medical Necessity Reason Pt with a Central, PICC or Fol: No Subjective Review of Systems Patient seen and examined at the bedside. Patient is still confused and could not communicate properly . Objective vital signs Vital Sign Date Time Temp Pulse Resp B/P (MAP) Pulse Ox O2 Delivery O2 Flow Rate FiO2 02/23/25 17:00 98.5 65 18 141/73 (95) 96 98.5 02/23/25 08:15 Room Air* 0 21 Total Intake and Output 02/22/25 02/22/25 02/23/25 14:59 22:59 06:59 Intake Total 180 ml 850 ml Output Total 1 ml Balance 179 ml 850 ml medications Current Medications Medications Dose Ordered Sig/Luke Route Start Time Stop Time Status Last Admin Dose Admin Aspirin 81 mg DAILY PO 02/22/25 10:00 02/23/25 09:50 81 MG Acetaminophen 500 mg Q4HPRN PRN PO 02/22/25 03:45 Acetaminophen/ Hydrocodone Bitart 1 tab Q4HPRN PRN PO 02/22/25 03:45 02/23/25 14:34 1 TAB Enoxaparin Sodium 40 mg DAILY SC 02/22/25 10:00 02/23/25 09:51 40 MG Amlodipine Besylate 10 mg DAILY PO 02/22/25 10:00 02/23/25 09:49 10 MG Lisinopril 10 mg DAILY PO 02/23/25 10:00 02/23/25 09:50 10 MG Nicotine 1 patch DAILY TD 02/23/25 10:00 Clopidogrel Bisulfate 75 mg DAILY PO 02/23/25 10:00 03/15/25 23:00 02/23/25 09:49 75 MG Atorvastatin Calcium 80 mg HS PO 02/23/25 13:30 02/23/25 14:35 80 MG Examination General Appearance: Alert, Oriented x1 HEENT: Atraumatic, PERRLA, EOMI, Mucous membrane moist/pink Respiratory: Clear to auscultation, Normal air movement Cardiovascular: Regular rate, Normal S1, Normal S2, No murmurs, no chest wall tenderness Abdominal: Normal bowel sounds, Soft, No tenderness, No hepatospenomegaly, No masses Extremities: No clubbing, No cyanosis, No edema, Normal pulses, No tenderness/swelling Skin: No rashes, No breakdown, No significant lesion Neuro: Right upper extremity power 2/5, right lower extremity power 1/5, grossly intact cranial nerves laboratory and microbiology Laboratory Tests 02/23/25 06:15 Test 02/23/25 06:15 Range/Units Serum Glucose 92 74-106 mg/dL Labs and/or images reviewed: Labs reviewed by me, Image(s) reviewed by me Problem List/Assessment/Plan Problem List/Assessment/Plan Acute metabolic encephalopathy, possibly due to traumatic brain injury Traumatic brain injury, concussion/contusion Possible ischemic stroke ? Hypertensive emergency leading to stroke/encephalopathy History of hypertension Per [place] record, head CT scan and head/neck CT angio were nonsignificant Brain MRI shows acute ischemia involving the inferior left occipital lobe, posterior medial left temporal lobe the left thalamus. No intracranial hemorrhage. Consulted Neurology, recommended medical management Aspirin, clopidogrel Atorvastatin Amlodipine and lisinopril Labetalol p.r.n. Physical therapy Current smoker Consulted for more than 17 minutes for smoking cessation Nicotine patch Hypercalcemia Ca trend DIET: Cardiac diet DVT PROPHYLAXIS: Lovenox GI PROPHYLAXIS:: Protonix CODE STATUS: Goal of care discussed for more than 18 minutes, full code DISPOSITION: Telemetry Per physical therapy evaluation, the patient needs physical therapy and SNF placement. Patient's status and plan discussed with the patient. Case discussed with Dr. Padgett. Plan discussed with: Patient, Other (RN) My Orders My Orders Orders - BARRETT WOODS RESDIJUNIOR Procedure Category Date Status Time Up In Chair Qid ABHI 02/23/25 In Process 06:51 Atorvastatin (Lipitor) PHA 02/23/25 In Process 13:30 Parathyroid NM 02/23/25 Logged 13:30 * Radio Communications Mechanician CONS 02/23/25 Transmitted Consult Date of Service: Feb 23, 2025 Billing Provider: ISABEL HATCH MD Common Visit Codes: [id number] INP/OBS CARE(HIGH) BARRETT WOODS RESDIENT Feb 23, 2025 18:57 ISABEL HATCH MD Feb 24, 2025 00:43
--- NOTE | 2025-02-23 23:00 | DVHPN2 ---
Progress Note - Dictate Date Seen: Feb 23, 2025 Has the PT tested + for MRSA If YES, has PT been informed?: No Medical Necessity Reason Pt with a Central, PICC or Fol: No Subjective Mr. Collazo is a 69 years old gentleman with a history of hypertension, obesity, tobacco smoking, the patient was was transferred from the [facility] with a chief company of ALOC, weakness, status post fall. I have seen and examined the patient, I have talked to his nurse and sitter, he was doing better today, he was oriented to person, place, he knows year and the month, he walked to the bathroom with unsteady gait earlier today, on physical examination, he was able to see both side, Urinalysis, 02/22/2025: WBC: 1, urine leukocyte esterase: Negative UDS, 02/22/2025: Negative CBC, 02/22/2025: Unremarkable CMP, 02/22/2025: Unremarkable HGB A1c, 02/22/25: 5 TG/HDL/LDL/HDL, 02/23/2025: 109/217/142/59 Vitamin B12, 02/22/25: 239, 02/23/2025: 259 TSH, 02/22/2025: 1.06 Carotid Doppler, 02/22/2025: No hemodynamically significant stenosis noted in the right carotid system. No hemodynamically significant stenosis noted in the left carotid system. MRI head, 02/22/2025: 1. Acute ischemia involving the inferior left occipital lobe, posterior medial left temporal lobe the left thalamus. No intracranial hemorrhage.Moderate global 2. Cortical atrophy and chronic microvascular ischemic changes. 3. 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 vital signs Vital Sign Date Time Temp Pulse Resp B/P (MAP) Pulse Ox O2 Delivery O2 Flow Rate FiO2 02/23/25 21:00 97.7 87 18 129/92 (104) 97 97.7 02/23/25 20:00 Room Air* 0 21 Total Intake and Output 02/22/25 02/22/25 02/23/25 14:59 22:59 06:59 Intake Total 180 ml 850 ml Output Total 1 ml Balance 179 ml 850 ml medications Current Medications Medications Dose Ordered Sig/Luke Route Start Time Stop Time Status Last Admin Dose Admin Aspirin 81 mg DAILY PO 02/22/25 10:00 02/23/25 09:50 81 MG Acetaminophen 500 mg Q4HPRN PRN PO 02/22/25 03:45 Acetaminophen/ Hydrocodone Bitart 1 tab Q4HPRN PRN PO 02/22/25 03:45 02/23/25 14:34 1 TAB Enoxaparin Sodium 40 mg DAILY SC 02/22/25 10:00 02/23/25 09:51 40 MG Amlodipine Besylate 10 mg DAILY PO 02/22/25 10:00 02/23/25 09:49 10 MG Lisinopril 10 mg DAILY PO 02/23/25 10:00 02/23/25 09:50 10 MG Nicotine 1 patch DAILY TD 02/23/25 10:00 Clopidogrel Bisulfate 75 mg DAILY PO 02/23/25 10:00 03/15/25 23:00 02/23/25 09:49 75 MG Atorvastatin Calcium 80 mg HS PO 02/23/25 13:30 02/23/25 14:35 80 MG objective General: the patient is well developed and nourished. No acute distress. MENTAL STATUS: Subjective SPEECH, LANGUAGE, HIGHER CORTICAL FUNCTION: no aphasia or dysathria. CRANIAL NERVES: No evidence of right visual field cut. Pupils are equal, round and reactive. EOMs full and conjugate. Diminished pinprick and light touch in the right face. Mandibular strength intact. Facial muscles symmetrical and strength intact. SENSATION: Sensation to touch and pinprick is diminished in the right arm than leg MOTOR: Normal tone in the upper and lower extremity. Normal muscle bulk. No fasciculations. No abnormal movements or posturing. Muscle strength of the major groups in the left extremities is 5/5. Muscle strength of the major groups in the right extremities is 4/5. REFLEXES: Deep tendon reflexes are symmetrical. No pathological reflexes. CEREBELLAR/COORDINATION: Deferred GAIT/STATION: deferred laboratory and microbiology Laboratory Tests 02/23/25 06:15 Test 02/23/25 06:15 Range/Units Serum Glucose 92 74-106 mg/dL Problem List Acute stroke with resultant right hemiparesis, right homonymous hemianopsia Fall secondary to right hemiparesis Tobacco smoking Low vitB12 Assessment/Plan Monitoring Supportive treatment Telemetry Echocardiogram Aspirin 81 mg daily Plavix 75 mg daily for 21 days Lipitor 80 mg daily Lovenox 40 mg subQ daily Vitamin B12 supplementation Up to chair Physical therapy Quit smoking More recommendation per clinical course This medical document was created using an electronic medical record system with [employer] computerized dictation system. Although this document has been carefully reviewed, there may still be some phonetic and typographical errors. These areas are purely typographical due to imperfections of the software programs, and do not reflect any compromise in the patient's medical care. Prognosis poor Plan discussed with: Patient, Other MARK BOOKER MD Feb 23, 2025 23:00
[2025-02-23] MEDS: CYANOCOBALAMIN (B-12) 1000 MCG/1 ML VIAL IM ONE (23:55)
[2025-02-24] VITALS (7 sets, daily range): BP systolic 119–142; BP diastolic 62–85; PULSE 61–85; RESP 16–18; TEMP 97.9–98.6; O2SAT 95–97
[2025-02-24 07:19] LABS: Basophils # (auto) 0 10 ^3/uL (0-0.2); Basophils % (auto) 0.2 % (0.0-2.0); Eosinophils # (auto) 0.1 10 ^3/uL (0-0.8); Eosinophils % (auto) 1.7 % (0.0-7.0); Hematocrit 46.6 % (41.0-53.0); Lymphocytes # (auto) 1.4 10 ^3/uL (0.4-5.4); Lymphocytes % (auto) 24.3 % (10.0-50.0); Mean Corpuscular Hemoglobin 32.5 pg (28.0-32.0); Mean Corpuscular Hgb Conc. 34.4 g/dL (32.0-36.0); Mean Corpuscular Volume 94.7 fL (80.0-100.0); Monocytes # (auto) 0.6 10 ^3/uL (0-1.3); Monocytes % (auto) 10.2 % (0.0-12.0); Neutrophils # (auto) 3.5 10 ^3/uL (1.6-8.6); Neutrophils % (auto) 63.6 % (37.0-80.0); Nucleated Red Blood Cells % 0.2 %; Platelet Count (auto) 186 10^3/uL (140-450); Red Blood Cells 4.92 10^6/uL (4.5-5.90); Red Cell Distribution Width 13.9 % (11.8-14.3); White Blood Cell 5.6 10^3/uL (4.4-10.8)
[2025-02-24 07:36] LABS: Alanine Aminotransferase 25 U/L (7-40); Alkaline Phosphatase 91 U/L (46-116); Anion Gap 7 (5-15); Aspartate Aminotransferase 17 U/L (13-40); Carbon Dioxide 24 mmol/L (20-31); Chloride 105 mmol/L (98-107); Glucose 98 mg/dL (74-106); Potassium 3.8 mmol/L (3.5-5.1); Sodium 136 mmol/L (136-145)
[2025-02-24 07:37] LABS: Blood Urea Nitrogen 13 mg/dL (9-23)
[2025-02-24 07:38] LABS: Albumin 4.4 g/dL (3.2-4.8)
[2025-02-24 07:39] LABS: Bilirubin, Total 0.9 mg/dL (0.2-1.0)
[2025-02-24 07:44] LABS: Calcium 11.4 mg/dL (8.7-10.4)
[2025-02-24] MEDS: CYANOCOBALAMIN 500 MCG TAB PO SCH (10:42)
--- NOTE | 2025-02-24 13:07 | DVH ---
EXAM: NM PARATHYROID DATE OF SERVICE: 02/24/2025 08:16 AM BARRETT WOODS RESDIENT REASON FOR EXAM: Primary hyper parathyroidism TECHNIQUE: Following the intravenous administration of 23.6 mCi of Tc-99m Sestamibi, planar images at 15 minutes and 3 hours were obtained from the vertex to the chest. COMPARISON: None FINDINGS: 15 minutes post injection, the thyroid gland demonstrates diffuse, homogeneous uptake. 3 hours post injection, there is focal radiotracer uptake in the right inferior thyroid lobe. IMPRESSION: 1. Focal radiotracer uptake in the right inferior thyroid lobe favored to reflect a parathyroid adeno ma.
[2025-02-24] MEDS: SODIUM CHLORIDE 0.9% 1,000 ML IV ONE (16:13)
--- NOTE | 2025-02-24 17:09 | DVHPNRES ---
Progress Note Date Seen: Feb 24, 2025 Resident Creating Document: BARRETT WOODS TA Has the PT tested + for MRSA If YES, has PT been informed?: No Medical Necessity Reason Pt with a Central, PICC or Fol: No Subjective Review of Systems Patient seen and examined at bedside. She is feeling better since admission but still confused. Patient reports: Feels better Objective vital signs Vital Sign Date Time Temp Pulse Resp B/P (MAP) Pulse Ox O2 Delivery O2 Flow Rate FiO2 02/24/25 16:31 98.3 83 16 122/62 (82) 95 98.3 02/23/25 20:00 Room Air* 0 21 Total Intake and Output 02/23/25 02/23/25 02/24/25 15:00 23:00 07:00 Intake Total 1340 ml 300 ml Output Total 500 ml 3 ml Balance 840 ml 297 ml medications Current Medications Medications Dose Ordered Sig/Luke Route Start Time Stop Time Status Last Admin Dose Admin Aspirin 81 mg DAILY PO 02/22/25 10:00 02/24/25 10:42 81 MG Acetaminophen 500 mg Q4HPRN PRN PO 02/22/25 03:45 Acetaminophen/ Hydrocodone Bitart 1 tab Q4HPRN PRN PO 02/22/25 03:45 02/23/25 14:34 1 TAB Enoxaparin Sodium 40 mg DAILY SC 02/22/25 10:00 02/24/25 10:41 40 MG Amlodipine Besylate 10 mg DAILY PO 02/22/25 10:00 02/24/25 10:42 10 MG Lisinopril 10 mg DAILY PO 02/23/25 10:00 02/24/25 10:43 10 MG Nicotine 1 patch DAILY TD 02/23/25 10:00 Clopidogrel Bisulfate 75 mg DAILY PO 02/23/25 10:00 03/15/25 23:00 02/24/25 10:41 75 MG Atorvastatin Calcium 80 mg HS PO 02/23/25 13:30 02/23/25 14:35 80 MG Cyanocobalamin 500 mcg DAILY PO 02/24/25 10:00 02/24/25 10:42 500 MCG Folic Acid 1 mg/ Multivitamins 10 ml/Magnesium Sulfate 8 meq/ Thiamine HCl 100 mg/Dextrose 1,013.2 ml @ 125.001 mls/hr DAILY@1800 INJ 02/24/25 18:00 Examination General Appearance: Alert, Oriented x1 HEENT: Atraumatic, PERRLA, EOMI, Mucous membrane moist/pink Respiratory: Clear to auscultation, Normal air movement Cardiovascular: Regular rate, Normal S1, Normal S2, No murmurs, no chest wall tenderness Abdominal: Normal bowel sounds, Soft, No tenderness, No hepatospenomegaly, No masses Extremities: No clubbing, No cyanosis, No edema, Normal pulses, No tenderness/swelling Skin: No rashes, No breakdown, No significant lesion Neuro: Right upper extremity power 2/5, right lower extremity power 1/5, grossly intact cranial nerves laboratory and microbiology Laboratory Tests 02/24/25 05:47 Test 02/24/25 05:47 Range/Units Serum Glucose 98 74-106 mg/dL Labs and/or images reviewed: Labs reviewed by me, Image(s) reviewed by me Problem List/Assessment/Plan Problem List/Assessment/Plan Acute metabolic encephalopathy, possibly due to traumatic brain injury Traumatic brain injury, concussion/contusion Possible ischemic stroke ? Hypertensive emergency leading to stroke/encephalopathy History of hypertension Per [place] record, head CT scan and head/neck CT angio were nonsignificant Brain MRI shows acute ischemia involving the inferior left occipital lobe, posterior medial left temporal lobe the left thalamus. No intracranial hemorrhage. Consulted Neurology, recommended medical management Aspirin, clopidogrel Atorvastatin Amlodipine and lisinopril Labetalol p.r.n. Physical therapy Current smoker Consulted for more than 17 minutes for smoking cessation Nicotine patch Hypercalcemia due to primary hyperparathyroidism Calcium is raised at 10.4 Parathyroid gland nuclear scan shows Focal radiotracer uptake in the right inferior thyroid lobe favored to reflect a parathyroid adenoma Consulted surgery DIET: Cardiac diet DVT PROPHYLAXIS: Lovenox GI PROPHYLAXIS:: Protonix CODE STATUS: Goal of care discussed for more than 18 minutes, full code DISPOSITION: Telemetry Per physical therapy evaluation, the patient needs physical therapy and SNF placement. Patient's status and plan discussed with the patient. Case discussed with Dr. Padgett. Plan discussed with: Patient, Other (RN) My Orders My Orders Orders - BARRETT WOODS RESDIJNUIOR Procedure Category Date Status Time Folic Acid... PHA 02/24/25 In Process 18:00 * Surgical Consult CONS 02/24/25 Transmitted 16:59 Date of Service: Feb 24, 2025 Billing Provider: ISABEL HATCH MD Common Visit Codes: [id number] INP/OBS CARE(HIGH) BARRETT WOODS RESDIENT Feb 24, 2025 17:09 ISABEL HATCH MD March 06, 2025 21:28
[2025-02-24] MEDS: FOLIC ACID 1 MG, MULTIPLE VITAMIN 10 ML, MAGNESIUM SULF SDV 50% 8 MEQ, THIAMINE INJ 100... INJ SCH (18:29)
--- NOTE | 2025-02-24 22:51 | DVHPN2 ---
Progress Note - Dictate Date Seen: Feb 24, 2025 Has the PT tested + for MRSA If YES, has PT been informed?: No Medical Necessity Reason Pt with a Central, PICC or Fol: No Subjective Mr. Collazo is a 69 years old gentleman with a history of hypertension, obesity, tobacco smoking, the patient was was transferred from the [facility] with a chief company of ALOC, weakness, status post fall. I have seen and examined the patient, I have talked to his nurse and sitter, he was awake, oriented to person, place, but he was very confused, with abnormal behavior Urinalysis, 02/22/2025: WBC: 1, urine leukocyte esterase: Negative UDS, 02/22/2025: Negative CBC, 02/22/2025: Unremarkable CMP, 02/22/2025: Unremarkable HGB A1c, 02/22/25: 5 TG/HDL/LDL/HDL, 02/23/2025: 109/217/142/59 Vitamin B12, 02/22/25: 239, 02/23/2025: 259 TSH, 02/22/2025: 1.06 Echocardiogram, 02/22/2025: LVEF 55-60% is normal There is mild concentric left ventricular hypertrophy. Carotid Doppler, 02/22/2025: No hemodynamically significant stenosis noted in the right carotid system. No hemodynamically significant stenosis noted in the left carotid system. MRI head, 02/22/2025: 1. Acute ischemia involving the inferior left occipital lobe, posterior medial left temporal lobe the left thalamus. No intracranial hemorrhage.Moderate global 2. Cortical atrophy and chronic microvascular ischemic changes. 3. 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 vital signs Vital Sign Date Time Temp Pulse Resp B/P (MAP) Pulse Ox O2 Delivery O2 Flow Rate FiO2 02/24/25 21:00 98.3 67 16 137/65 (89) 96 98.3 02/24/25 20:00 Room Air* 0 21 Total Intake and Output 02/23/25 02/23/25 02/24/25 15:00 23:00 07:00 Intake Total 1340 ml 300 ml Output Total 500 ml 3 ml Balance 840 ml 297 ml medications Current Medications Medications Dose Ordered Sig/Luke Route Start Time Stop Time Status Last Admin Dose Admin Aspirin 81 mg DAILY PO 02/22/25 10:00 02/24/25 10:42 81 MG Acetaminophen 500 mg Q4HPRN PRN PO 02/22/25 03:45 Acetaminophen/ Hydrocodone Bitart 1 tab Q4HPRN PRN PO 02/22/25 03:45 02/23/25 14:34 1 TAB Enoxaparin Sodium 40 mg DAILY SC 02/22/25 10:00 02/24/25 10:41 40 MG Amlodipine Besylate 10 mg DAILY PO 02/22/25 10:00 02/24/25 10:42 10 MG Lisinopril 10 mg DAILY PO 02/23/25 10:00 02/24/25 10:43 10 MG Nicotine 1 patch DAILY TD 02/23/25 10:00 Clopidogrel Bisulfate 75 mg DAILY PO 02/23/25 10:00 03/15/25 23:00 02/24/25 10:41 75 MG Atorvastatin Calcium 80 mg HS PO 02/23/25 13:30 02/23/25 14:35 80 MG Cyanocobalamin 500 mcg DAILY PO 02/24/25 10:00 02/24/25 10:42 500 MCG Folic Acid 1 mg/ Multivitamins 10 ml/Magnesium Sulfate 8 meq/ Thiamine HCl 100 mg/Dextrose 1,013.2 ml @ 125.001 mls/hr DAILY@1800 INJ 02/24/25 18:00 02/24/25 18:29 125.001 MLS/HR objective General: the patient is well developed and nourished. No acute distress. MENTAL STATUS: Subjective SPEECH, LANGUAGE, HIGHER CORTICAL FUNCTION: no aphasia or dysathria. CRANIAL NERVES: No evidence of right visual field cut. Pupils are equal, round and reactive. EOMs full and conjugate. Diminished pinprick and light touch in the right face. Mandibular strength intact. Facial muscles symmetrical and strength intact. SENSATION: Sensation to touch and pinprick is diminished in the right arm than leg MOTOR: Normal tone in the upper and lower extremity. Normal muscle bulk. No fasciculations. No abnormal movements or posturing. Muscle strength of the major groups in the left extremities is 5/5. Muscle strength of the major groups in the right extremities is 4/5. REFLEXES: Deep tendon reflexes are symmetrical. No pathological reflexes. CEREBELLAR/COORDINATION: Deferred GAIT/STATION: deferred laboratory and microbiology Laboratory Tests 02/24/25 05:47 Test 02/24/25 05:47 Range/Units Serum Glucose 98 74-106 mg/dL Problem List Acute stroke with resultant right hemiparesis, right homonymous hemianopsia Fall secondary to right hemiparesis Tobacco smoking Low vitB12 Metabolic encephalopathy Assessment/Plan Monitoring Supportive treatment Telemetry Aspirin 81 mg daily Plavix 75 mg daily for 21 days Lipitor 80 mg daily Lovenox 40 mg subQ daily Vitamin B12 supplementation A trial of Remeron 15 mg HS for psychosis control Up to chair Physical therapy Quit smoking More recommendation per clinical course This medical document was created using an electronic medical record system with [employer] dictation system. Although this document has been carefully reviewed, there may still be some phonetic and typographical errors. These areas are purely typographical due to imperfections of the software programs, and do not reflect any compromise in the patient's medical care. Prognosis poor Plan discussed with: Other MARK BOOKER MD Feb 24, 2025 22:51
[2025-02-24] MEDS: MIRTAZAPINE 30 MG TAB PO ONE (23:48)
[2025-02-25 05:00] VITALS: BP 130/74; PULSE 65; RESP 16; TEMP 98.6; O2SAT 91
[2025-02-25 05:58] LABS: Basophils # (auto) 0 10 ^3/uL (0-0.2); Basophils % (auto) 0.5 % (0.0-2.0); Eosinophils # (auto) 0.1 10 ^3/uL (0-0.8); Eosinophils % (auto) 1.7 % (0.0-7.0); Hematocrit 44.2 % (41.0-53.0); Hemoglobin 15.3 g/dL (13.5-17.5); Lymphocytes # (auto) 1.4 10 ^3/uL (0.4-5.4); Mean Corpuscular Hemoglobin 32.7 pg (28.0-32.0); Mean Corpuscular Hgb Conc. 34.7 g/dL (32.0-36.0); Mean Corpuscular Volume 94.1 fL (80.0-100.0); Monocytes # (auto) 0.8 10 ^3/uL (0-1.3); Monocytes % (auto) 11.9 % (0.0-12.0); Neutrophils % (auto) 63.9 % (37.0-80.0); Nucleated Red Blood Cells % 0.2 %; Platelet Count (auto) 199 10^3/uL (140-450); Red Blood Cells 4.69 10^6/uL (4.5-5.90); Red Cell Distribution Width 13.5 % (11.8-14.3); White Blood Cell 6.3 10^3/uL (4.4-10.8)
[2025-02-25 06:19] LABS: Alanine Aminotransferase 26 U/L (7-40); Albumin 4.1 g/dL (3.2-4.8); Alkaline Phosphatase 88 U/L (46-116); Anion Gap 7 (5-15); Aspartate Aminotransferase 26 U/L (13-40); BUN/Creatinine Ratio 11.7 (10.0-20.0); Blood Urea Nitrogen 9 mg/dL (9-23); Carbon Dioxide 23 mmol/L (20-31); Chloride 107 mmol/L (98-107); Potassium 4.1 mmol/L (3.5-5.1); Sodium 137 mmol/L (136-145); Total Protein 6.7 g/dL (5.7-8.2)
[2025-02-25 06:20] LABS: Bilirubin, Total 0.9 mg/dL (0.2-1.0)
[2025-02-25 06:27] LABS: Glucose 121 mg/dL (74-106)
[2025-02-25] MEDS: SODIUM CHLORIDE 0.9% 1,000 ML IV ONE (07:04)
[2025-02-25 08:00] VITALS: PULSE 56
[2025-02-25 09:00] VITALS: BP 121/65; PULSE 80; RESP 15; TEMP 97.6; O2SAT 100
[2025-02-25] MEDS: OLANZapine 5 MG TAB PO ONE (10:30)
[2025-02-25] MEDS ORDERED: THIAMINE INJ 500 MG in D5W 5% 50 ML IV SCH (14:00)
--- NOTE | 2025-02-25 14:41 | DVHINCON2 ---
Date of service: Feb 25, 2025 Allergies: Coded Allergies: NO KNOWN ALLERGIES (Unverified , 02/21/25) Current Medications Current Medications Medications (Trade) Dose Ordered Sig/Luke Route PRN Reason Start Time Stop Time Status Last Admin Folic Acid 1 mg/ Multivitamins 10 ml/Magnesium Sulfate 8 meq/ Thiamine HCl 100 mg/Dextrose 1,013.2 ml @ 125.001 mls/hr DAILY@1800 INJ 02/24/25 18:00 02/25/25 10:36 DC 02/24/25 18:29 Mirtazapine (Remeron Tablet) 15 mg HS PO 02/25/25 22:00 Thiamine HCl 500 mg/Dextrose 55 ml @ 100 mls/hr TID IV 02/25/25 14:00 02/25/25 10:35 DC Thiamine HCl 250 mg/Dextrose 52.5 ml @ 100 mls/hr DAILY IV 02/28/25 10:00 02/25/25 10:35 DC Thiamine HCl 200 mg DAILY IV 02/26/25 10:00 02/25/25 11:02 DC Folic Acid 1 mg/ Multivitamins 10 ml/Magnesium Sulfate 8 meq/ Thiamine HCl 100 mg/Dextrose 1,013.2 ml @ 125.001 mls/hr DAILY@1800 INJ 02/25/25 18:00 02/26/25 22:00 Olanzapine (ZyPREXA Tablet) 10 mg DAILY PO 02/26/25 10:00 Thiamine HCl 200 mg/Dextrose 52 ml @ 100 mls/hr DAILY IV 02/26/25 10:00 03/02/25 10:32 Vital Signs Vital Signs Date Time Temp Pulse Resp B/P (MAP) Pulse Ox O2 Delivery O2 Flow Rate FiO2 02/25/25 10:52 121/65 02/25/25 09:00 97.6 80 15 100 97.6 02/25/25 08:00 Room Air* 0 21 Labs/Diagnostic Data Labs Test 02/25/25 05:39 02/24/25 05:47 02/23/25 06:15 02/22/25 13:10 Range/Units White Blood Count 6.3 4.4-10.8 10^3/uL Red Blood Count 4.69 4.5-5.90 10^6/uL Hemoglobin 15.3 13.5-17.5 g/dL Hematocrit 44.2 41.0-53.0 % Mean Corpuscular Volume 94.1 80.0-100.0 fL Mean Corpuscular Hemoglobin 32.7 H 28.0-32.0 pg Mean Corpuscular Hemoglobin Concent 34.7 32.0-36.0 g/dL Red Cell Distribution Width 13.5 11.8-14.3 % Platelet Count 199 140-450 10^3/uL Mean Platelet Volume 7.8 6.9-10.8 fL Neutrophils (%) (Auto) 63.9 37.0-80.0 % Lymphocytes (%) (Auto) 22.0 10.0-50.0 % Monocytes (%) (Auto) 11.9 0.0-12.0 % Eosinophils (%) (Auto) 1.7 0.0-7.0 % Basophils (%) (Auto) 0.5 0.0-2.0 % Neutrophils # (Auto) 4.0 1.6-8.6 10 ^3/uL Lymphocytes # (Auto) 1.4 0.4-5.4 10 ^3/uL Monocytes # (Auto) 0.8 0-1.3 10 ^3/uL Eosinophils # (Auto) 0.1 0-0.8 10 ^3/uL Basophils # (Auto) 0 0-0.2 10 ^3/uL Nucleated Red Blood Cells 0.2 % Sodium Level 137 136-145 mmol/L Potassium Level 4.1 3.5-5.1 mmol/L Chloride Level 107 98-107 mmol/L Carbon Dioxide Level 23 20-31 mmol/L Anion Gap 7 5-15 Blood Urea Nitrogen 9 9-23 mg/dL Creatinine 0.77 0.700-1.30 mg/dL Glomerular Filtration Rate Calc 98 >90 mL/min BUN/Creatinine Ratio 11.7 10.0-20.0 Serum Glucose 121 H 74-106 mg/dL Calcium Level 11.0 H 8.7-10.4 mg/dL Total Bilirubin 0.9 0.2-1.0 mg/dL Aspartate Amino Transferase (AST) 26 13-40 U/L Alanine Aminotransferase (ALT) 26 7-40 U/L Alkaline Phosphatase 88 46-116 U/L Total Protein 6.7 5.7-8.2 g/dL Albumin 4.1 3.2-4.8 g/dL Phosphorus Level 3.0 2.4-5.1 mg/dL Triglycerides Level 109 < 150 mg/dL Cholesterol Level 218 H < 200 mg/dL LDL Cholesterol 142 H < 100 mg/dL HDL Cholesterol 59 40-59 mg/dL Vitamin B12 Level 259 211-911 pg/mL Ammonia < 10 L 11-32 umol/L Test 02/22/25 04:03 02/22/25 00:40 02/22/25 00:21 Range/Units Prothrombin Time 10.6 9.3-11.8 sec Prothrombin Time INR 1.00 0.9-1.15 Activated Partial Thromboplast Time 31.7 24.5-34.5 SEC Hemoglobin A1c 5.0 <5.7 % A1C Magnesium Level 2.2 1.6-2.6 mg/dL Direct Bilirubin 0.2 <0.3 mg/dL Vitamin D 25-Hydroxy 35.8 30.0-100 ng/mL Thyroid Stimulating Hormone (TSH) 1.06 0.55-4.78 uIU/mL Parathyroid Hormone (Intact) 103.8 H 18.4-80.1 pg/mL HIV (1&2) Antibody Negative Negative Urine Color Light-yellow Yellow Urine Clarity Clear Clear Urine pH 6.5 5.0-9.0 Urine Specific [place] > 1.050 H 1.001-1.035 Urine Protein Negative Negative Urine Ketones Negative Negative Urine Blood Negative Negative /uL Urine Nitrite Negative Negative Urine Bilirubin Negative Negative Urine Urobilinogen Normal Negative mg/dL Urine Leukocyte Esterase Negative Negative /uL Urine RBC 1 0 - 3 /hpf Urine Microscopic WBC < 1 0-3 /HPF Urine Squamous Epithelial Cells Few <5 /hpf Urine Bacteria None seen None Seen /hpf Urine Glucose Normal Normal mg/dL Urine Opiates Screen Neg NEGATIVE Urine Fentanyl Screen Neg NEGATIVE Urine Barbiturates Screen Neg NEGATIVE Urine Phencyclidine Screen Neg NEGATIVE Urine Amphetamines Screen Neg NEGATIVE Urine Benzodiazepines Screen Neg NEGATIVE Urine Cocaine Screen Neg NEGATIVE Urine Cannabinoids Screen Neg NEGATIVE Troponin I High Sensitivity 8 </=54 ng/L B-Type Natriuretic Peptide 24.73 0-100 pg/mL Assessment PATIENT WITH HYPERCALCEMIA HAS A RIGHT LOWER PARATHYROID ADENOMA, RECENT CVA, SUGGEST 2 TO 3 WEEKS WAIT TO RETURN TO OFFICE AND SCHEDULE ELECTIVE NECK EXPLORATION Plan discussed with: Patient EUGENE ESTRADA MD Feb 25, 2025 14:41
[2025-02-25 17:00] VITALS: BP 136/82; PULSE 61; RESP 15; TEMP 98.7; O2SAT 98
--- NOTE | 2025-02-25 18:08 | DVHPNRES ---
Progress Note Date Seen: Feb 25, 2025 Resident Creating Document: BARRETT WOODS TA Has the PT tested + for MRSA If YES, has PT been informed?: No Medical Necessity Reason Pt with a Central, PICC or Fol: No Subjective Review of Systems Patient seen and examined at bedside. Patient is still confused and could not provide proper history. Patient reports: Feels better Objective vital signs Vital Sign Date Time Temp Pulse Resp B/P (MAP) Pulse Ox O2 Delivery O2 Flow Rate FiO2 02/25/25 17:00 98.7 61 15 136/82 (100) 98 98.7 02/25/25 08:00 Room Air* 0 21 Total Intake and Output 02/24/25 02/24/25 02/25/25 15:00 23:00 07:00 Intake Total 1720 ml 800 ml Output Total 800 ml 500 ml Balance 920 ml 300 ml medications Current Medications Medications Dose Ordered Sig/Luke Route Start Time Stop Time Status Last Admin Dose Admin Aspirin 81 mg DAILY PO 02/22/25 10:00 02/25/25 10:50 81 MG Acetaminophen 500 mg Q4HPRN PRN PO 02/22/25 03:45 Acetaminophen/ Hydrocodone Bitart 1 tab Q4HPRN PRN PO 02/22/25 03:45 02/23/25 14:34 1 TAB Enoxaparin Sodium 40 mg DAILY SC 02/22/25 10:00 02/25/25 10:53 40 MG Amlodipine Besylate 10 mg DAILY PO 02/22/25 10:00 02/25/25 10:52 10 MG Lisinopril 10 mg DAILY PO 02/23/25 10:00 02/25/25 10:51 10 MG Nicotine 1 patch DAILY TD 02/23/25 10:00 Clopidogrel Bisulfate 75 mg DAILY PO 02/23/25 10:00 03/15/25 23:00 02/25/25 10:50 75 MG Atorvastatin Calcium 80 mg HS PO 02/23/25 13:30 02/24/25 23:24 80 MG Cyanocobalamin 500 mcg DAILY PO 02/24/25 10:00 02/25/25 10:51 500 MCG Mirtazapine 15 mg HS PO 02/25/25 22:00 Folic Acid 1 mg/ Multivitamins 10 ml/Magnesium Sulfate 8 meq/ Thiamine HCl 100 mg/Dextrose 1,013.2 ml @ 125.001 mls/hr DAILY@1800 INJ 02/25/25 18:00 02/26/25 22:00 Olanzapine 10 mg DAILY PO 02/26/25 10:00 Thiamine HCl 200 mg/Dextrose 52 ml @ 100 mls/hr DAILY IV 02/26/25 10:00 03/02/25 10:32 Examination General Appearance: Alert, Oriented x1 HEENT: Atraumatic, PERRLA, EOMI, Mucous membrane moist/pink Respiratory: Clear to auscultation, Normal air movement Cardiovascular: Regular rate, Normal S1, Normal S2, No murmurs, no chest wall tenderness Abdominal: Normal bowel sounds, Soft, No tenderness, No hepatospenomegaly, No masses Extremities: No clubbing, No cyanosis, No edema, Normal pulses, No tenderness/swelling Skin: No rashes, No breakdown, No significant lesion Neuro: Right upper extremity power 2/5, right lower extremity power 1/5, grossly intact cranial nerves laboratory and microbiology Laboratory Tests 02/25/25 05:39 Test 02/25/25 05:39 Range/Units Serum Glucose 121 H 74-106 mg/dL Labs and/or images reviewed: Labs reviewed by me, Image(s) reviewed by me Problem List/Assessment/Plan Problem List/Assessment/Plan Acute metabolic encephalopathy, possibly due to traumatic brain injury Traumatic brain injury, concussion/contusion Possible ischemic stroke ? Hypertensive emergency leading to stroke/encephalopathy History of hypertension Per [facility] record, head CT scan and head/neck CT angio were nonsignificant Brain MRI shows acute ischemia involving the inferior left occipital lobe, posterior medial left temporal lobe the left thalamus. No intracranial hemorrhage. Consulted Neurology, recommended medical management Aspirin, clopidogrel Atorvastatin Amlodipine and lisinopril Labetalol p.r.n. Physical therapy Current smoker Consulted for more than 17 minutes for smoking cessation Nicotine patch Hypercalcemia due to primary hyperparathyroidism Calcium is raised at 10.4 Parathyroid gland nuclear scan shows Focal radiotracer uptake in the right inferior thyroid lobe favored to reflect a parathyroid adenoma Consulted surgery, recommended outpatient follow up 2-3 weeks later DIET: Cardiac diet DVT PROPHYLAXIS: Lovenox GI PROPHYLAXIS:: Protonix CODE STATUS: Goal of care discussed for more than 18 minutes, full code DISPOSITION: Telemetry Per physical therapy evaluation, the patient needs physical therapy and SNF placement. Patient's status and plan discussed with the patient. Case discussed with Dr. Padgett. Plan discussed with: Patient, Other (RN) My Orders My Orders Orders - BARRETT WOODS RESDIENT Procedure Category Date Status Time Olanzapine Tablet PHA 02/26/25 In Process (Zyprexa Tablet) 10:00 *Tele Psych Consult CONS 02/25/25 Transmitted 10:28 Dietary Evaluation Review Comments: Continue follow cardiac diet, monitor PO intake to meet 75% of his needs. Expected Outcomes/Goals: gradual wt loss. Date of Service: Feb 25, 2025 Billing Provider: ISABEL HATCH MD Common Visit Codes: [id number] INP/OBS CARE(HIGH) BARRETT WOODS RESDIENT Feb 25, 2025 18:08 ISABEL HATCH MD March 06, 2025 21:15
[2025-02-25] MEDS: FOLIC ACID 1 MG, MULTIPLE VITAMIN 10 ML, MAGNESIUM SULF SDV 50% 8 MEQ, THIAMINE INJ 100... INJ SCH (18:10)
--- NOTE | 2025-02-25 18:32 | DVHINCON2 ---
Date of Service if different f: Feb 25, 2025 Consultation ([facility]) Labs Laboratory Tests Test 02/22/25 00:21 02/22/25 00:40 02/22/25 04:03 02/22/25 13:10 Troponin I High Sensitivity 8 ng/L (</=54) B-Type Natriuretic Peptide 24.73 pg/mL (0-100) Urine Color Light-yellow (Yellow) Urine Clarity Clear (Clear) Urine pH 6.5 (5.0-9.0) Urine Specific [place] > 1.050 (1.001-1.035) Urine Protein Negative (Negative) Urine Ketones Negative (Negative) Urine Blood Negative /uL (Negative) Urine Nitrite Negative (Negative) Urine Bilirubin Negative (Negative) Urine Urobilinogen Normal mg/dL (Negative) Urine Leukocyte Esterase Negative /uL (Negative) Urine RBC 1 /hpf (0 - 3) Urine Microscopic WBC < 1 /HPF (0-3) Urine Squamous Epithelial Cells Few /hpf (<5) Urine Bacteria None seen /hpf (None Seen) Urine Glucose Normal mg/dL (Normal) Urine Opiates Screen Neg (NEGATIVE) Urine Fentanyl Screen Neg (NEGATIVE) Urine Barbiturates Screen Neg (NEGATIVE) Urine Phencyclidine Screen Neg (NEGATIVE) Urine Amphetamines Screen Neg (NEGATIVE) Urine Benzodiazepines Screen Neg (NEGATIVE) Urine Cocaine Screen Neg (NEGATIVE) Urine Cannabinoids Screen Neg (NEGATIVE) Prothrombin Time 10.6 sec (9.3-11.8) Prothromb Time International Ratio 1.00 (0.9-1.15) Activated Partial Thromboplast Time 31.7 SEC (24.5-34.5) Hemoglobin A1c 5.0 % A1C (<5.7) Magnesium Level 2.2 mg/dL (1.6-2.6) Direct Bilirubin 0.2 mg/dL (<0.3) Vitamin D 25-Hydroxy 35.8 ng/mL (30.0-100) Thyroid Stimulating Hormone (TSH) 1.06 uIU/mL (0.55-4.78) Parathyroid Hormone (Intact) 103.8 pg/mL (18.4-80.1) HIV (1&2) Antibody Negative (Negative) Ammonia < 10 umol/L (11-32) Test 02/23/25 06:15 02/24/25 05:47 02/25/25 05:39 Triglycerides Level 109 mg/dL (< 150) Cholesterol Level 218 mg/dL (< 200) LDL Cholesterol 142 mg/dL (< 100) HDL Cholesterol 59 mg/dL (40-59) Vitamin B12 Level 259 pg/mL (211-911) Phosphorus Level 3.0 mg/dL (2.4-5.1) White Blood Count 6.3 10^3/uL (4.4-10.8) Red Blood Count 4.69 10^6/uL (4.5-5.90) Hemoglobin 15.3 g/dL (13.5-17.5) Hematocrit 44.2 % (41.0-53.0) Mean Corpuscular Volume 94.1 fL (80.0-100.0) Mean Corpuscular Hemoglobin 32.7 pg (28.0-32.0) Mean Corpuscular Hemoglobin Concent 34.7 g/dL (32.0-36.0) Red Cell Distribution Width 13.5 % (11.8-14.3) Platelet Count 199 10^3/uL (140-450) Mean Platelet Volume 7.8 fL (6.9-10.8) Neutrophils (%) (Auto) 63.9 % (37.0-80.0) Lymphocytes (%) (Auto) 22.0 % (10.0-50.0) Monocytes (%) (Auto) 11.9 % (0.0-12.0) Eosinophils (%) (Auto) 1.7 % (0.0-7.0) Basophils (%) (Auto) 0.5 % (0.0-2.0) Neutrophils # (Auto) 4.0 10 ^3/uL (1.6-8.6) Lymphocytes # (Auto) 1.4 10 ^3/uL (0.4-5.4) Monocytes # (Auto) 0.8 10 ^3/uL (0-1.3) Eosinophils # (Auto) 0.1 10 ^3/uL (0-0.8) Basophils # (Auto) 0 10 ^3/uL (0-0.2) Nucleated Red Blood Cells 0.2 % Sodium Level 137 mmol/L (136-145) Potassium Level 4.1 mmol/L (3.5-5.1) Chloride Level 107 mmol/L (98-107) Carbon Dioxide Level 23 mmol/L (20-31) Anion Gap 7 (5-15) Blood Urea Nitrogen 9 mg/dL (9-23) Creatinine 0.77 mg/dL (0.700-1.30) Glomerular Filtration Rate Calc 98 mL/min (>90) BUN/Creatinine Ratio 11.7 (10.0-20.0) Serum Glucose 121 mg/dL (74-106) Calcium Level 11.0 mg/dL (8.7-10.4) Total Bilirubin 0.9 mg/dL (0.2-1.0) Aspartate Amino Transf (AST/SGOT) 26 U/L (13-40) Alanine Aminotransferase (ALT/SGPT) 26 U/L (7-40) Alkaline Phosphatase 88 U/L (46-116) Total Protein 6.7 g/dL (5.7-8.2) Albumin 4.1 g/dL (3.2-4.8) Appetite: Fair Appearance: Stated age Psychomotor activity: WNL Behavioral: Cooperative Eye contact: Limited Speech: WNL Affect: Mood Congruent Mood: Irritable Thought processes: Tangential Thought content: WNL Suicidal ideations: Absent Homicidal ideations: Absent Orientation: Person, Place, Time, Confused Memory intact: Poor Intellect: Average Abstractability: Marginal Concentration: Limited Attention: Limited Judgement: Poor Insight: Marginal Vitals Vital Signs Date Time Temp Pulse Resp B/P (MAP) Pulse Ox O2 Delivery O2 Flow Rate FiO2 02/25/25 17:00 98.7 61 15 136/82 (100) 98 98.7 02/25/25 08:00 Room Air* 0 21 Current medications Current Medications Medications Dose Ordered Sig/Luke Route Start Time Stop Time Status Last Admin Dose Admin Aspirin 81 mg DAILY PO 02/22/25 10:00 02/25/25 10:50 81 MG Acetaminophen 500 mg Q4HPRN PRN PO 02/22/25 03:45 Acetaminophen/ Hydrocodone Bitart 1 tab Q4HPRN PRN PO 02/22/25 03:45 02/23/25 14:34 1 TAB Enoxaparin Sodium 40 mg DAILY SC 02/22/25 10:00 02/25/25 10:53 40 MG Amlodipine Besylate 10 mg DAILY PO 02/22/25 10:00 02/25/25 10:52 10 MG Lisinopril 10 mg DAILY PO 02/23/25 10:00 02/25/25 10:51 10 MG Nicotine 1 patch DAILY TD 02/23/25 10:00 Clopidogrel Bisulfate 75 mg DAILY PO 02/23/25 10:00 03/15/25 23:00 02/25/25 10:50 75 MG Atorvastatin Calcium 80 mg HS PO 02/23/25 13:30 02/24/25 23:24 80 MG Cyanocobalamin 500 mcg DAILY PO 02/24/25 10:00 02/25/25 10:51 500 MCG Mirtazapine 15 mg HS PO 02/25/25 22:00 Folic Acid 1 mg/ Multivitamins 10 ml/Magnesium Sulfate 8 meq/ Thiamine HCl 100 mg/Dextrose 1,013.2 ml @ 125.001 mls/hr DAILY@1800 INJ 02/25/25 18:00 02/26/25 22:00 Olanzapine 10 mg DAILY PO 02/26/25 10:00 Thiamine HCl 200 mg/Dextrose 52 ml @ 100 mls/hr DAILY IV 02/26/25 10:00 03/02/25 10:32 Medication adjusted: Yes Diagnosis: delirium Plan : This is a 69-year-old male, confused after recent fall Recommend re-evaluation Continue Remeron 15mg po qhs Zyprexa 10mg po BID. or zyprexa 10mg IM bid prn agitation History of Present Illness Reason for Consult : confusion, moments of agitation HPI : This is a 69-year-old male presents here for recent falls and confusion. Patient is evaluated via telepsychiatry. Patient was irritable on exam, reporting he does not want to be here, but made him. He does not clearly state reason for admission. He does not recall events leading to fall. He reports year as 2024 or 2005 and month as February. He reports being unable to go anywhere or leave the house. He thinks he has problems with memory but not sure. He reports drinking a couple of beers daily, not sure exact amount. When asked about marijuana, replies " is that not the same thing as beer?" He reports sleep and appetite are fine. He denies feeling depressed. He denies suicidal/homicidal ideation. He denies auditory, visual hallucinations are paranoia. Per nurse, he is prescribed here Remeron 15mg, and zyprexa, but per nurse, pt refused zyprexa, stating "I'm not the one at fault for having problems with narcotics" when asked to explain, he refuses Past Psychiatric History : He denies past psych admissions or holds. he denies prior suicide attempts. He denies prior psychiatric diagnoses or outpatient follow up. Past Medical History : Per chart review Social History : He reports and lives with . He reports employment at [employer] for [employer] for over 20years, retired 3 months ago. 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 He is not sure of marijuana use. His toxicology is negative. he reports drinking beer daily. Per chart review, smokes one pack of cigarette per day. JUNAID FRANKS DNP Feb 25, 2025 18:32
[2025-02-25 20:00] VITALS: PULSE 79
[2025-02-25 20:46] VITALS: BP 99/56; PULSE 61; RESP 18; TEMP 98.5; O2SAT 97
[2025-02-25] MEDS: MIRTAZAPINE 30 MG TAB PO SCH (22:25)
[2025-02-26 04:34] VITALS: BP 119/84; PULSE 101; RESP 18; TEMP 97.5; O2SAT 95
[2025-02-26] MEDS: SODIUM CHLORIDE 0.9% 1,000 ML IV ONE (07:00)
[2025-02-26 08:00] VITALS: PULSE 58; RESP 16
[2025-02-26 08:11] LABS: Basophils # (auto) 0 10 ^3/uL (0-0.2); Basophils % (auto) 0.3 % (0.0-2.0); Eosinophils # (auto) 0.1 10 ^3/uL (0-0.8); Eosinophils % (auto) 1.5 % (0.0-7.0); Lymphocytes # (auto) 1.4 10 ^3/uL (0.4-5.4); Mean Corpuscular Hemoglobin 32.7 pg (28.0-32.0); Mean Corpuscular Hgb Conc. 34.8 g/dL (32.0-36.0); Monocytes # (auto) 0.8 10 ^3/uL (0-1.3); Monocytes % (auto) 12.3 % (0.0-12.0); Neutrophils # (auto) 3.9 10 ^3/uL (1.6-8.6); Neutrophils % (auto) 62.9 % (37.0-80.0); Nucleated Red Blood Cells % 0.1 %; Platelet Count (auto) 184 10^3/uL (140-450); Red Blood Cells 4.89 10^6/uL (4.5-5.90); Red Cell Distribution Width 13.6 % (11.8-14.3); White Blood Cell 6.1 10^3/uL (4.4-10.8)
[2025-02-26 08:30] LABS: Alanine Aminotransferase 28 U/L (7-40); Albumin 4.3 g/dL (3.2-4.8); Alkaline Phosphatase 93 U/L (46-116); Anion Gap 6 (5-15); Aspartate Aminotransferase 21 U/L (13-40); BUN/Creatinine Ratio 10.3 (10.0-20.0); Carbon Dioxide 25 mmol/L (20-31); Chloride 106 mmol/L (98-107); Glucose 93 mg/dL (74-106); Potassium 3.8 mmol/L (3.5-5.1); Sodium 137 mmol/L (136-145); Total Protein 6.8 g/dL (5.7-8.2)
[2025-02-26 08:31] LABS: Bilirubin, Total 0.9 mg/dL (0.2-1.0)
[2025-02-26 08:33] LABS: Blood Urea Nitrogen 8 mg/dL (9-23); Calcium 11.1 mg/dL (8.7-10.4)
[2025-02-26 08:56] VITALS: BP 123/75; PULSE 60; RESP 20; TEMP 98.4; O2SAT 94
[2025-02-26] MEDS: OLANZapine 5 MG TAB PO SCH (10:00)
[2025-02-26] MEDS: THIAMINE IV SCH (10:00)
[2025-02-26] MEDS ORDERED: THIAMINE 100mg/ml INJ (200mg/2ml VIAL) IV SCH (10:00)
[2025-02-26] MEDS: D5W 5% IV SCH (10:00)
--- NOTE | 2025-02-26 10:51 | DVHPN2 ---
Progress Note - Dictate Date Seen: Feb 26, 2025 Has the PT tested + for MRSA If YES, has PT been informed?: No Medical Necessity Reason Pt with a Central, PICC or Fol: No Subjective Mr. Collazo is a 69 years old gentleman with a history of hypertension, obesity, tobacco smoking, the patient was was transferred from the [facility] with a chief company of ALOC, weakness, status post fall. I have seen and examined the patient, I have talked to Dr. Snowden, his nurse and sitter, he was awake, oriented to person, place, he follow verbal commands, he was good social skills. He can not see his right side on physical examination today Urinalysis, 02/22/2025: WBC: 1, urine leukocyte esterase: Negative UDS, 02/22/2025: Negative CBC, 02/22/2025: Unremarkable CMP, 02/22/2025: Unremarkable HGB A1c, 02/22/25: 5 TG/HDL/LDL/HDL, 02/23/2025: 109/217/142/59 Vitamin B12, 02/22/25: 239, 02/23/2025: 259 TSH, 02/22/2025: 1.06 Echocardiogram, 02/22/2025: LVEF 55-60% is normal There is mild concentric left ventricular hypertrophy. Carotid Doppler, 02/22/2025: No hemodynamically significant stenosis noted in the right carotid system. No hemodynamically significant stenosis noted in the left carotid system. MRI head, 02/22/2025: 1. Acute ischemia involving the inferior left occipital lobe, posterior medial left temporal lobe the left thalamus. No intracranial hemorrhage.Moderate global 2. Cortical atrophy and chronic microvascular ischemic changes. 3. 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 vital signs Vital Sign Date Time Temp Pulse Resp B/P (MAP) Pulse Ox O2 Delivery O2 Flow Rate FiO2 02/26/25 08:56 98.4 60 20 123/75 (91) 94 98.4 02/26/25 08:00 Room Air* 0 21 Total Intake and Output 02/25/25 02/25/25 02/26/25 15:00 23:00 07:00 Intake Total 1000 ml 0 ml 1600 ml Balance 1000 ml 0 ml 1600 ml medications Current Medications Medications Dose Ordered Sig/Luke Route Start Time Stop Time Status Last Admin Dose Admin Aspirin 81 mg DAILY PO 02/22/25 10:00 02/25/25 10:50 81 MG Acetaminophen 500 mg Q4HPRN PRN PO 02/22/25 03:45 Acetaminophen/ Hydrocodone Bitart 1 tab Q4HPRN PRN PO 02/22/25 03:45 02/23/25 14:34 1 TAB Enoxaparin Sodium 40 mg DAILY SC 02/22/25 10:00 02/25/25 10:53 40 MG Amlodipine Besylate 10 mg DAILY PO 02/22/25 10:00 02/25/25 10:52 10 MG Lisinopril 10 mg DAILY PO 02/23/25 10:00 02/25/25 10:51 10 MG Nicotine 1 patch DAILY TD 02/23/25 10:00 Clopidogrel Bisulfate 75 mg DAILY PO 02/23/25 10:00 03/15/25 23:00 02/25/25 10:50 75 MG Atorvastatin Calcium 80 mg HS PO 02/23/25 13:30 02/25/25 22:26 80 MG Cyanocobalamin 500 mcg DAILY PO 02/24/25 10:00 02/25/25 10:51 500 MCG Mirtazapine 15 mg HS PO 02/25/25 22:00 02/25/25 22:25 15 MG Folic Acid 1 mg/ Multivitamins 10 ml/Magnesium Sulfate 8 meq/ Thiamine HCl 100 mg/Dextrose 1,013.2 ml @ 125.001 mls/hr DAILY@1800 INJ 02/25/25 18:00 02/26/25 22:00 02/25/25 18:10 125.001 MLS/HR Olanzapine 10 mg DAILY PO 02/26/25 10:00 Thiamine HCl 200 mg/Dextrose 52 ml @ 100 mls/hr DAILY IV 02/26/25 10:00 03/02/25 10:32 objective General: the patient is well developed and nourished. No acute distress. MENTAL STATUS: Subjective SPEECH, LANGUAGE, HIGHER CORTICAL FUNCTION: no aphasia or dysathria. CRANIAL NERVES: Right homonymous hemianopsia. Pupils are equal, round and reactive. EOMs full and conjugate. Diminished pinprick and light touch in the right face. Mandibular strength intact. Facial muscles symmetrical and strength intact. SENSATION: Sensation to touch and pinprick is diminished in the right arm than leg MOTOR: Normal tone in the upper and lower extremity. Normal muscle bulk. No fasciculations. No abnormal movements or posturing. Muscle strength of the major groups in the left extremities is 5/5. Muscle strength of the major groups in the right extremities is 4/5. REFLEXES: Deep tendon reflexes are symmetrical. No pathological reflexes. CEREBELLAR/COORDINATION: Deferred GAIT/STATION: deferred laboratory and microbiology Laboratory Tests 02/26/25 07:11 Test 02/26/25 07:11 Range/Units Serum Glucose 93 74-106 mg/dL Problem List Acute stroke with resultant right hemiparesis, right homonymous hemianopsia Fall secondary to right hemiparesis Tobacco smoking Low vitB12 Metabolic encephalopathy Assessment/Plan Monitoring Supportive treatment Telemetry Aspirin 81 mg daily Plavix 75 mg daily for 21 days Lipitor 80 mg daily Lovenox 40 mg subQ daily Vitamin B12 supplementation A trial of Remeron 15 mg HS for psychosis control Up to chair Physical therapy Quit smoking Not drive and he is cleared (visual field cut) DMV report in the chart Discontinue Remeron, use quetiapine PRN for behavior control More recommendation per clinical course This medical document was created using an electronic medical record system with [employer] dictation system. Although this document has been carefully reviewed, there may still be some phonetic and typographical errors. These areas are purely typographical due to imperfections of the software programs, and do not reflect any compromise in the patient's medical care. Prognosis poor Dietary Evaluation Review Comments: Continue follow cardiac diet, monitor PO intake to meet 75% of his needs. Expected Outcomes/Goals: gradual wt loss. Plan discussed with: Other MARK BOOKER MD Feb 26, 2025 10:51
[2025-02-26 13:00] VITALS: BP 107/61; PULSE 66; RESP 17; TEMP 97.5; O2SAT 96
--- NOTE | 2025-02-26 19:02 | DVHDSRES ---
Discharge Summary Date of Admission Resident Creating Document: BARRETT WOODS RESDIENT Feb 22, 2025 at 03:37 Date of Discharge: Feb 26, 2025 Admitting Diagnosis Ischemic stroke Labs/Diagnostic Data: Laboratory Results Test 02/26/25 07:11 02/24/25 05:47 02/23/25 06:15 02/22/25 13:10 White Blood Count 6.1 10^3/uL (4.4-10.8) Red Blood Count 4.89 10^6/uL (4.5-5.90) Hemoglobin 16.0 g/dL (13.5-17.5) Hematocrit 46.0 % (41.0-53.0) Mean Corpuscular Volume 94.0 fL (80.0-100.0) Mean Corpuscular Hemoglobin 32.7 pg (28.0-32.0) Mean Corpuscular Hemoglobin Concent 34.8 g/dL (32.0-36.0) Red Cell Distribution Width 13.6 % (11.8-14.3) Platelet Count 184 10^3/uL (140-450) Mean Platelet Volume 7.9 fL (6.9-10.8) Neutrophils (%) (Auto) 62.9 % (37.0-80.0) Lymphocytes (%) (Auto) 23.0 % (10.0-50.0) Monocytes (%) (Auto) 12.3 % (0.0-12.0) Eosinophils (%) (Auto) 1.5 % (0.0-7.0) Basophils (%) (Auto) 0.3 % (0.0-2.0) Neutrophils # (Auto) 3.9 10 ^3/uL (1.6-8.6) Lymphocytes # (Auto) 1.4 10 ^3/uL (0.4-5.4) Monocytes # (Auto) 0.8 10 ^3/uL (0-1.3) Eosinophils # (Auto) 0.1 10 ^3/uL (0-0.8) Basophils # (Auto) 0 10 ^3/uL (0-0.2) Nucleated Red Blood Cells 0.1 % Sodium Level 137 mmol/L (136-145) Potassium Level 3.8 mmol/L (3.5-5.1) Chloride Level 106 mmol/L (98-107) Carbon Dioxide Level 25 mmol/L (20-31) Anion Gap 6 (5-15) Blood Urea Nitrogen 8 mg/dL (9-23) Creatinine 0.78 mg/dL (0.700-1.30) Glomerular Filtration Rate Calc 98 mL/min (>90) BUN/Creatinine Ratio 10.3 (10.0-20.0) Serum Glucose 93 mg/dL (74-106) Calcium Level 11.1 mg/dL (8.7-10.4) Total Bilirubin 0.9 mg/dL (0.2-1.0) Aspartate Amino Transferase (AST) 21 U/L (13-40) Alanine Aminotransferase (ALT) 28 U/L (7-40) Alkaline Phosphatase 93 U/L (46-116) Total Protein 6.8 g/dL (5.7-8.2) Albumin 4.3 g/dL (3.2-4.8) Phosphorus Level 3.0 mg/dL (2.4-5.1) Triglycerides Level 109 mg/dL (< 150) Cholesterol Level 218 mg/dL (< 200) LDL Cholesterol 142 mg/dL (< 100) HDL Cholesterol 59 mg/dL (40-59) Vitamin B12 Level 259 pg/mL (211-911) Ammonia < 10 umol/L (11-32) Test 02/22/25 04:03 02/22/25 00:40 02/22/25 00:21 Prothrombin Time 10.6 sec (9.3-11.8) Prothrombin Time INR 1.00 (0.9-1.15) Activated Partial Thromboplast Time 31.7 SEC (24.5-34.5) Hemoglobin A1c 5.0 % A1C (<5.7) Magnesium Level 2.2 mg/dL (1.6-2.6) Direct Bilirubin 0.2 mg/dL (<0.3) Vitamin D 25-Hydroxy 35.8 ng/mL (30.0-100) Thyroid Stimulating Hormone (TSH) 1.06 uIU/mL (0.55-4.78) Parathyroid Hormone (Intact) 103.8 pg/mL (18.4-80.1) HIV (1&2) Antibody Negative (Negative) Urine Color Light-yellow (Yellow) Urine Clarity Clear (Clear) Urine pH 6.5 (5.0-9.0) Urine Specific [place] > 1.050 (1.001-1.035) Urine Protein Negative (Negative) Urine Ketones Negative (Negative) Urine Blood Negative /uL (Negative) Urine Nitrite Negative (Negative) Urine Bilirubin Negative (Negative) Urine Urobilinogen Normal mg/dL (Negative) Urine Leukocyte Esterase Negative /uL (Negative) Urine RBC 1 /hpf (0 - 3) Urine Microscopic WBC < 1 /HPF (0-3) Urine Squamous Epithelial Cells Few /hpf (<5) Urine Bacteria None seen /hpf (None Seen) Urine Glucose Normal mg/dL (Normal) Urine Opiates Screen Neg (NEGATIVE) Urine Fentanyl Screen Neg (NEGATIVE) Urine Barbiturates Screen Neg (NEGATIVE) Urine Phencyclidine Screen Neg (NEGATIVE) Urine Amphetamines Screen Neg (NEGATIVE) Urine Benzodiazepines Screen Neg (NEGATIVE) Urine Cocaine Screen Neg (NEGATIVE) Urine Cannabinoids Screen Neg (NEGATIVE) Troponin I High Sensitivity 8 ng/L (</=54) B-Type Natriuretic Peptide 24.73 pg/mL (0-100) Other Laboratory Tests 02/26/25 07:11 Brief Hx & Hospital Course: This is a 69-year-old male with past medical history of hypertension transferred from [facility] for evaluation of right side weakness. Patient is altered, history taken from at bedside. Per patient's , he had a mechanical fall 4 days back, post fall he was altered, was refusing hospital visit and yesterday he was taken to [facility]. Per [facility] records head CT scan and head/neck CT angio were not significant. During my assessment patient was oriented x1 and was complaining of right upper extremity pain. Per patient's , he has history of multiple fall, did not have any active complains but was not able to use his right upper and lower extremity since recent fall, and was ataxic during mobility. She denies fever, nausea, vomiting, chest pain, shortness of breath, abdominal pain, diarrhea, constipation. PMHx: Hypertension PSHx: No significant Family history: Not contributed Social history:Current smoker with 50 pack year history, drank occasionally, denies any other drug use Home medication: Amlodipine Allergic history: No known allergy Hospital course: Patient was admitted at the line of ischemic stroke. MRI showed, Acute ischemia involving the inferior left occipital lobe, posterior medial left temporal lobe the left thalamus. 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 Neurology consulted, recommended medical management. Patient was given aspirin, atorvastatin, Plavix, and continued home medicine. Due to altered mental status, tele psychiatric evaluation was performed, and recommended management delirium. Hypertensive Emergency were controlled with amlodipine, lisinopril and labetalol p.r.n.. Patient was counseled for smoking cessation. Physical therapy evaluation was performed and recommended SNF placement for PT. Patient had hypercalcemia, upon nuclear scan found to have parathyroid adenoma leading to hyperparathyroidism, consulted surgery recommended outpatient follow up for possible surgery. On 02/25/2025, the patient was feeling better since admission. Discharge plan discussed with the patient and the patient's discharge to the SNF for PT. Discharge plan: Tablet aspirin Atorvastatin Plavix for 21 days Lisinopril Clopidogrel Nicotine by Physical therapy 2 times per day for 2 weeks Follow up with the PCP within 1 week of the discharge Follow up with the Neurology on outpatient basis. Condition at Discharge: Fair Final Diagnosis/Problems List Acute metabolic encephalopathy, possibly due to traumatic brain injury/ischemic stroke Traumatic brain injury, concussion/contusion Ischemic stroke , left occipital lobe Right-sided weakness, due to ischemic ? 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 Follow up with the Neurology on outpatient basis. Medications: Per transfer papers. Discharge Statement: "Patient was advised to return to the ER or call 911 if any headaches, dizziness, shortness of breath, chest pain, abdominal pain, bleeding, fevers, or worsening of medical condition. Patient was counseled about treatment plan, medications, possible side effects, patientverbalized understanding. All questions were answered to the best of my ability. This discharge took greater then 30 minutes in planning, reviewing documentation, counseling the patient, and discussing with other team members." ASSESSMENT ASSESSMENT Assessment Acute ischemic stroke Date of Service: Feb 26, 2025 Billing Provider: ISABEL HATCH MD Common Visit Codes: 90680-[id number]/[id number] DISCH DAY >30BARRETT Reaves Feb 26, 2025 19:02 ISABEL HATCH MD March 06, 2025 22:23
[2025-02-27] MEDS ORDERED: MULTIPLE VITAMIN TAB PO SCH (10:00)
[2025-02-28] MEDS ORDERED: THIAMINE INJ 250 MG in D5W 5% 50 ML IV SCH (10:00)
== END 2025-02-26 14:00 | DRG 64 ==
LOC: ER 23:45 → EDBD 23:45 → OVERFLOW 02-22 03:37 → TELE-CENTR 02-22 15:58
PROVIDERS: ADMIT Student in an Organized Health Care Education/Training Program; ATTEND Student in an Organized Health Care Education/Training Program
DX: I63.9 Cerebral infarction, unspecified (principal); G93.41 Metabolic encephalopathy; G81.91 Hemiplegia, unspecified affecting right dominant side; I16.1 Hypertensive emergency; E83.52 Hypercalcemia; F17.210 Nicotine dependence, cigarettes, uncomplicated; H53.461 Homonymous bilateral field defects, right side; Z79.899 Other long term (current) drug therapy; W18.39XA Other fall on same level, initial encounter; Y93.89 Activity, other specified; Y92.89 Other specified places as the place of occurrence of the external cause; Y99.8 Other external cause status
CPT/HCPCS: 36415; 70551; 71045; 73030; 73502; 78070; 80048; 80053; 80061; 80076; 80307; 81001; 82140; 82306; 82607; 83036; 83735; 83880; 83970; 84075; 84100; 84443; 84484; 85025; 85610; 85730; 86703; 93005; 93306; 93886; 97110; 97116; 97163; 97530; G0378; J7060